=== PATIENT | male | born 1955 | race Caucasian/White ===

== ENCOUNTER 2020-07-23 14:06 | Outpatient (CLI) | payer MEDICARE, BC, SELFPAY ==
--- NOTE | ~2020-07-23 | CT_ITS ---
EXAMINATION: CT soft tissue neck w con DATE: 07/23/2020 14:33 INDICATION: Localized swelling, mass, and lump, neck. TECHNIQUE: Computed tomography (CT) of the neck was performed with 75 mL Omnipaque-350 intravenous co ntrast. Automated exposure control and iterative reconstruction technique were employed. The dose-taya gth product was 401.48 mGy-cm. COMPARISON: None FINDINGS: There is mild asymmetric enlargement of left palatine tonsil. There is lymphadenopathy invo lving the right high internal jugular chain and left high and mid internal jugular chains. Some of th e lymph nodes demonstrate cystic areas. The largest node measures 2.3 x 1.7 cm in the left high inter nal jugular chain. There is plaque in the proximal internal carotid arteries with <50% stenosis relat prashant to normal distal artery lumen diameters. There is severe cervical spondylosis. There is a chronic compression fracture of T3. There is extensive dental disease. IMPRESSION: 1. Bilateral cervical lymphadenopathy suspicious for metastatic squamous cell carcinoma. CT-guided co re needle biopsy is recommended. I called this result to Jayne Funes in the office of Dr. Dumont. Reviewed, dictated and finalized at location A. UCTION MATERIAL COORDINATOR IMPRESSION: 1. Bilateral cervical lymphadenopathy suspicious for metastatic squamous cell c arcinoma. CT-guided core needle biopsy is recommended. I called this result to Jayne Funes in the office of Dr. Dumont.
[2020-07-23 14:25] LABS: Estimated Glomerular Filt Rate > 60
== END 2020-07-23 14:07 ==
PROVIDERS: PCP Family Medicine; Visit Provider Physician Assistant
DX: R22.1 Localized swelling, mass and lump, neck (principal)
CPT/HCPCS: 70491; Q9967

== ENCOUNTER 2020-08-04 11:10 | Outpatient (CLI) | payer MEDICARE, BC, SELFPAY ==
--- NOTE | ~2020-08-04 | US_ITS ---
EXAMINATION: US biopsy lymph node DATE: 08/04/2020 13:30 INDICATION: Left cervical lymphadenopathy TECHNIQUE: The procedure including the risks and benefits was discussed with the patient. Risks discu ssed included bleeding and infection. The patient understood the risks and agreed to proceed. The sk in overlying the left neck was prepped and draped in usual sterile fashion. Anesthetic was administe red with 1% lidocaine subcutaneously. An 18 gauge core biopsy needle was advanced under continuous u ltrasound observation to the lesion of interest. 4 core biopsy specimens were obtained. The needle was removed and the entry site was cleaned and dressed. Post procedure ultrasound demonstrated no he morrhage. FINDINGS: Ultrasound images demonstrate multiple enlarged hypoechoic left jugular chain lymph nodes, the largest and most cephalad measuring 3.2 x 1.1 x 2.2 cm. Subsequent images demonstrate biopsy need le advanced into this largest jugular chain lymph node. IMPRESSION: 1. Successful Ultrasound-guided biopsy of a 3.2 x 1.1 x 2.2 cm left jugular chain lymph node which is concerning for metastatic disease. Reviewed, dictated and finalized at location A. IMPRESSION: 1. Successful Ultrasound-guided biopsy of a 3.2 x 1.1 x 2.2 cm left jugular soheila in lymph node which is concerning for metastatic disease.
== END 2020-08-04 11:11 | disposition home or self-care (01) ==
PROVIDERS: PCP Family Medicine; Visit Provider Physician Assistant
DX: R93.89 Abnormal findings on diagnostic imaging of other specified body structures (principal); C77.0 Secondary and unspecified malignant neoplasm of lymph nodes of head, face and neck
CPT/HCPCS: 38505; 76942; 88305; 88342

== ENCOUNTER 2021-07-01 02:35 | Day surgery (SDC) | payer MEDICARE, BC, SELFPAY ==
[2021-06-25 08:53] VITALS: BMI 21.4
[2021-07-01 11:45] VITALS: BP 123/73; PULSE 97; RESP 16; TEMP 37.3; O2SAT 100; BMI 21.2
[2021-07-01] MEDS: LACTATED RINGERS 1,000 ML 150 ML IV CONT (12:06)
--- NOTE | 2021-07-01 12:16 | PM.HPGS ---
History of Present Illness History of Present Illness Consent: Risks, benefits, and alternatives have been discussed and questions answered. Patient agrees to proceed with procedure. Chief complaint: family hx of colon ca Narrative: Neeraj Tpaia is a 66 year old male Referred for colon cancer screening. He has a family history of colon cancer in his father. Review of Systems Review of Systems: All systems reviewed & are unremarkable except as noted in HPI and below PMFSH Past Medical History Medical History Family history of colorectal cancer Family History Family History Father Cancer Heart disease Other Asthma Social History Social History Smoking status: Former smoker Tobacco type: cigarettes Smoking end date: 05/16/16 Alcohol intake: current Drinks per week: 1 Substance use: never Living arrangements: with family Gender identity (if verbalized by the patient): Male Spiritual care concerns: No Meds Home Medications and Allergies Home Medications Medication Instructions Recorded Confirmed Type buspirone 5 mg tablet 5 mg PO BID #60 tablet 06/05/21 06/25/21 Rx gabapentin 300 mg capsule 300 mg PO TID #270 cap 06/16/21 06/25/21 Rx hydrocodone-acetaminophen 1 tablet PO BID PRN 06/25/21 06/25/21 History levothyroxine 88 mcg PO DAILY 06/25/21 06/25/21 History nadolol 20 mg PO DAILY 06/25/21 06/25/21 History tadalafil 20 mg PO DAILY PRN 06/25/21 06/25/21 History omeprazole 40 mg capsule,delayed 40 mg PO DAILY #90 cap 07/01/21 Rx release Allergies Allergy/AdvReac Type Severity Reaction Status Date / Time No Known Allergies Allergy Verified 07/01/21 11:52 Vital Signs Vital Signs - 24 hr 07/01/21 11:45 Temperature 37.3 C Pulse Rate 97 Respiratory Rate 16 Blood Pressure 123/73 Pulse Oximetry 100 Exam Resp: Auscultation: clear to auscultation bilaterally Cardio: Rate: regular rate Rhythm: regular rhythm GI: GI Palp: Yes Soft to palpation and No Tenderness to palpation present (GI) Assessment and Plan Assessment and plan (1) Colon cancer screening: Code(s): Z12.11 - Encounter for screening for malignant neoplasm of colon Status: Acute Assessment and Plan: Colonoscopy with possible biopsy or polypectomy or cautery or injection of substances.
--- NOTE | 2021-07-01 12:19 | P.PNAN_ITS ---
Anes - Initial Pre Proc Eval Procedure: Operation Date: 07/01/21 13:00 Proposed Procedures p Screening Colonoscopy - Dave Coleman MD Date/Time: 07/01/21 12:19 Surgeon: Dave Coleman MD Pre Op Diagnosis: family hx of colon ca Patient Data Age: 66 Gender: M Height: 1.78 m Weight: 67.1 kg Last Vital Signs Temp 37.3 C 07/01/21 11:45 Pulse 97 07/01/21 11:45 Resp 16 07/01/21 11:45 BP 123/73 07/01/21 11:45 Pulse Ox 100 07/01/21 11:45 Allergies Allergy/AdvReac Type Severity Reaction Status Date / Time No Known Allergies Allergy Verified 07/01/21 11:52 Home Medications Medication Instructions Recorded Confirmed Type buspirone 5 mg tablet 5 mg PO BID #60 tablet 06/05/21 06/25/21 Rx gabapentin 300 mg capsule 300 mg PO TID #270 cap 06/16/21 06/25/21 Rx hydrocodone-acetaminophen 1 tablet PO BID PRN 06/25/21 06/25/21 History levothyroxine 88 mcg PO DAILY 06/25/21 06/25/21 History nadolol 20 mg PO DAILY 06/25/21 06/25/21 History tadalafil 20 mg PO DAILY PRN 06/25/21 06/25/21 History omeprazole 40 mg capsule,delayed 40 mg PO DAILY #90 cap 07/01/21 Rx release Patient hx anesthesia problems: none Family hx anesthesia problems: none Results Review: All pre-operative results and documents have been reviewed as part of the pre-operative evaluation. [facility] Past Medical History Medical History Family history of colorectal cancer Family History Family History Father Cancer Heart disease Other Asthma Social History Social History Smoking status: Former smoker Tobacco type: cigarettes Smoking end date: 05/16/16 Alcohol intake: current Drinks per week: 1 Substance use: never Living arrangements: with family Gender identity (if verbalized by the patient): Male Spiritual care concerns: No Anes - Eval Final PreProcedure Day of Procedure 07/01/21 12:19 Patient weight: normal Heart: regular rate and rhythm Lungs: clear to auscultation Airway: Mallampati scale class II and other (edentulous) Neurological: alert and oriented Last oral intake: >/= 8 hours ASA classification: IV Emergent: no Anesthetic plan: proceed Anesthesia type and monitoring: general GIVS and standard monitoring Results Review: All pre-operative results and documents have been reviewed as part of the pre-operative evaluation. Informed Consent: The patient's anesthetic plan and its attendant risks and benefits were discussed with the patient/family/POA. Questions were solicited and answers provided to the satisfaction of the patient/family/POA.
[2021-07-01 13:37] VITALS: BP 117/67; PULSE 82; RESP 24; O2SAT 99
[2021-07-01 13:47] VITALS: BP 105/65; PULSE 90; RESP 22; O2SAT 99
[2021-07-01 13:57] VITALS: BP 110/68; PULSE 78; RESP 21; O2SAT 99
== END 2021-07-01 14:10 | disposition home or self-care (01) ==
PROVIDERS: PCP Family Medicine; Visit Provider Internal Medicine Gastroenterology
PROC: 0DJD8ZZ Inspection of Lower Intestinal Tract, Via Natural or Artificial Opening Endoscopic (ICD-10-PCS; CPT 45378; principal; 2021-07-01 13:00)
DX: Z12.11 Encounter for screening for malignant neoplasm of colon (principal); D12.4 Benign neoplasm of descending colon; D12.2 Benign neoplasm of ascending colon; Z80.0 Family history of malignant neoplasm of digestive organs; Z87.891 Personal history of nicotine dependence
CPT/HCPCS: 45385; 88305; J2704; J7120

== ENCOUNTER 2021-07-31 09:29 | Outpatient (CLI) | payer MEDICARE, BC, SELFPAY ==
--- NOTE | ~2021-07-31 | CT_ITS ---
EXAMINATION: CT lung screening DATE: 07/31/2021 09:46 INDICATION: Personal history of nicotine dependence TECHNIQUE: Computed tomography (CT) of the chest was performed without intravenous contrast. The dose -length product was 81.70 mGy-cm. Automated exposure control and iterative reconstruction technique w ere employed. COMPARISON: Chest x-ray dated 04/18/2017 FINDINGS: No significant pleural or pericardial effusion. Heart size normal. No thoracic lymphadenopa thy. There is gynecomastia. There is splenomegaly. There are gallstones. There is apical pleural thic kening/scarring. There are a few punctate 1-2 mm nodules in the upper lobes. No endobronchial lesions . No focal airspace consolidation. No pneumothorax. There are multiple compression fractures and burs t fractures at T3, T6, T7, T8, T9, T11, T12 and L2. IMPRESSION: 1. Lung-RADS category 2: Benign appearance or behavior. Continue annual screening with noncontrast lo w-dose chest CT in 12 months. 2: Cholelithiasis. 3: Splenomegaly. 4: Multiple compression fractures of the thoracic and lumbar spine, age indeterminate. 5: Gynecomastia. Reviewed, dictated and finalized at location B. IMPRESSION: 1. Lung-RADS category 2: Benign appearance or behavior. Continue annual screeni ng with noncontrast low-dose chest CT in 12 months. 2: Cholelithiasis. 3: Splenomegaly. 4: Multiple compression fractures of the thoracic and lumbar spine, age indeter minate. 5: Gynecomastia.
--- NOTE | ~2021-07-31 | US_ITS ---
EXAMINATION: US aorta DATE: 07/31/2021 10:07 INDICATION: Abdominal aortic aneurysm screening with risk factors of prior smoking TECHNIQUE: Grayscale, color Doppler, and pulsed Doppler images of the aorta and common iliac arteries were obtained. COMPARISON: None. FINDINGS: The proximal aorta measures 2.4 cm AP. The mid aorta measures 1.7 cm AP. The distal aorta measures 1. 7 cm AP. The right common iliac artery measures 11 mm. The left common iliac artery measures 10 mm. IMPRESSION: 1. Normal caliber abdominal aorta. Reviewed, dictated and finalized at location A.
== END 2021-07-31 09:30 | disposition home or self-care (01) ==
LOC: ANHIMG 09:34
PROVIDERS: PCP Family Medicine; Visit Provider Physician Assistant
DX: Z12.2 Encounter for screening for malignant neoplasm of respiratory organs (principal); Z87.891 Personal history of nicotine dependence; K80.20 Calculus of gallbladder without cholecystitis without obstruction; R16.1 Splenomegaly, not elsewhere classified; M48.54XA Collapsed vertebra, not elsewhere classified, thoracic region, initial encounter for fracture; M48.56XA Collapsed vertebra, not elsewhere classified, lumbar region, initial encounter for fracture; N62 Hypertrophy of breast
CPT/HCPCS: 71271; 76775

== ENCOUNTER 2021-10-23 16:42 | Outpatient (CLI) | payer MEDICARE, BC, SELFPAY ==
[2021-10-23 17:10] LABS: INR 1.3; Prothrombin Time 15.4 Seconds (11.1-14.7)
[2021-10-23 17:12] LABS: Alanine Aminotransferase 17 U/L (6-50); Albumin Level 4.2 g/dL (3.5-5.1); Alkaline Phosphatase 121 U/L (38-126); Aspartate Amino Transferase 38 U/L (17-59); Bilirubin,Total 3.1 mg/dL (0.2-1.3)
[2021-10-23 17:17] LABS: Ammonia < 9 umol/L (9-30)
== END 2021-10-23 16:43 | disposition home or self-care (01) ==
LOC: ANHLAB 16:46
PROVIDERS: PCP Family Medicine; Visit Provider Internal Medicine Gastroenterology
DX: K74.60 Unspecified cirrhosis of liver (principal)
CPT/HCPCS: 36415; 80076; 82140; 85610

== ENCOUNTER 2021-11-05 07:17 | Outpatient (CLI) | payer MEDICARE, BC, SELFPAY ==
--- NOTE | ~2021-11-05 | US_ITS ---
EXAMINATION: US abdomen complete DATE: 11/05/2021 09:01 INDICATION: Cirrhosis TECHNIQUE: Multiple grayscale and Doppler ultrasound images of the abdomen were obtained. COMPARISON: Ultrasound dated 01/21/[address] dated 07/31/21 FINDINGS: The visualized portion of the pancreatic body is normal in appearance. Pancreatic head and tail are n ot visualized. The visualized mid to distal aorta appears normal measuring 2.2 cm proximally tapering to 1.7 cm distally. Liver demonstrates normal echogenicity with mildly coarsened echotexture and sub tle finding surface nodularity consistent with given history of cirrhosis. Vascular flow identified w ithin a 6.5 x 5.6 x 5.3 cm heterogeneously hypoechoic mass in the anterior right hepatic lobe. No int rahepatic biliary duct dilation suspected. Portal venous flow was seen in the hepatopetal, normal dir ection and has normal Doppler waveform. The visualized proximal inferior vena cava is normal. Multipl e echogenic and shadowing gallstones within the otherwise normal-appearing gallbladder. Sonographic M urphy sign was reported as negative by the bunch maker.Common bile duct measures 4 mm diameter which is normal. There is normal renal contour and echogenicity bilaterally. The right kidney measures 10.2 x 3.9 x 3.9 cm and the left than 0.1 x 3.8 x 4.6 cm. And 2 mm echogenic stone at the lower pole of t he right kidney with posterior truncal artifact. There is no hydronephrosis. Splenomegaly measuring 1 5.7 cm in maximal length consistent with portal venous hypertension. IMPRESSION: 1. Cirrhosis with indeterminate 6.5 cm heterogeneous hypoechoic masslike lesion in the right hepatic lobe raising concern for hepatocellular carcinoma. Recommend further evaluation with pre and postcont rast MRI. 2. Cholelithiasis. 3. Splenomegaly consistent with portal venous hypertension. Reviewed, dictated and finalized at location B. IMPRESSION: 1. Cirrhosis with indeterminate 6.5 cm heterogeneous hypoechoic masslike lesion in the right hepatic lobe raising concern for hepatocellular carcinoma. Recomm end further evaluation with pre and postcontrast MRI. 2. Cholelithiasis. 3. Splenomegaly consistent with portal venous hypertension.
== END 2021-11-05 07:18 | disposition home or self-care (01) ==
PROVIDERS: PCP Family Medicine; Visit Provider Internal Medicine Gastroenterology
DX: K74.60 Unspecified cirrhosis of liver (principal); K80.20 Calculus of gallbladder without cholecystitis without obstruction; R16.1 Splenomegaly, not elsewhere classified
CPT/HCPCS: 76700

== ENCOUNTER 2021-11-09 11:04 | Outpatient (CLI) | payer MEDICARE, BC, SELFPAY ==
[2021-11-15 14:15] LABS: Alpha Fetoprotein Tumor Marker 79.8 ng/mL (<6.1)
== END 2021-11-09 11:05 | disposition home or self-care (01) ==
LOC: ANHLAB 11:08
PROVIDERS: PCP Family Medicine; Visit Provider Internal Medicine Gastroenterology
DX: K74.60 Unspecified cirrhosis of liver (principal)
CPT/HCPCS: 36415; 82105

== ENCOUNTER 2021-11-23 10:38 | Outpatient (CLI) | payer MEDICARE, BC, SELFPAY ==
--- NOTE | ~2021-11-23 | MR_ITS ---
EXAMINATION: MR abdomen wo/w con DATE: 11/23/2021 11:44 INDICATION: Hepatic mass on prior ultrasound TECHNIQUE: Magnetic resonance imaging (MRI) of the abdomen was performed without and with 13 mL Multi ivon intravenous contrast. Sequences included coronal T2-weighted SS-FSE, coronal and axial FS 2D-F IESTA, axial STIR FSE, axial T2-weighted SS-FSE, axial T2-weighted FS SS-FSE, axial diffusion-weighte d SE, axial dual-echo T1-weighted FSPGR, and axial and coronal T1-weighted LAVA. Postcontrast axial T 1-weighted LAVA images were obtained in a time course. Postcontrast coronal T1-weighted LAVA images w ere obtained. COMPARISON: Ultrasound abdomen dated 11/05/2021 FINDINGS: Heart size is normal. No pericardial or pleural effusion. Multiple gallstones in the otherwise normal -appearing gallbladder with no dilation, wall thickening or pericholecystic edema to suggest acute ch olecystitis. Pancreas, bilateral adrenal glands and kidneys are normal. Nodular cirrhotic liver with dilation of the portal veins and splenomegaly measuring 17.0 cm in maximal length consistent with sec ondary portal venous hypertension. There are multiple hepatic masses primarily in the right hepatic l obe which demonstrate central arterial phase enhancement with subsequent central washout with persist ent peripheral enhancing rims . Constellation of MRI findings would be consistent with LI-RADS 5 lesi ons considered 100% definitive for hepatocellular carcinoma. The majority including the 2 largest bo suring 6.2 x 4.4 cm and 5.6 x 4.2 cm are found in the caudal right hepatic lobe which include 3 addit ional 1.4 cm, 1.5 cm and 1.0 cm masses at a single 1.9 cm mass in segment IVb of the left hepatic lob e. Visualized portion of the bowels are unremarkable. No pathologically enlarged abdominal lymphadeno leni. There are multiple compression fractures in the lumbar and lower thoracic spine. Normal bone m arrow signal with no abnormal focal lesions or other pathologic marrow replacing process. IMPRESSION: 1. Cirrhosis with six Li-Rads 5 hepatic masses which would be considered 100% definitive for hepatoce llular carcinoma. Ultrasound-guided core needle biopsy could be obtained for definitive pathologic co nfirmation. 2. Enlarged portal veins and splenomegaly consistent with secondary portal venous hypertension. Reviewed, dictated and finalized at location B. IMPRESSION: 1. Cirrhosis with six Li-Rads 5 hepatic masses which would be considered 100% d efinitive for hepatocellular carcinoma. Ultrasound-guided core needle biopsy co uld be obtained for definitive pathologic confirmation. 2. Enlarged portal veins and splenomegaly consistent with secondary portal veno us hypertension.
[2021-11-23 11:10] LABS: Estimated Glomerular Filt Rate > 60
== END 2021-11-23 10:39 | disposition home or self-care (01) ==
PROVIDERS: PCP Family Medicine; Visit Provider Internal Medicine Gastroenterology
DX: R16.0 Hepatomegaly, not elsewhere classified (principal); K80.20 Calculus of gallbladder without cholecystitis without obstruction; K74.60 Unspecified cirrhosis of liver; R16.1 Splenomegaly, not elsewhere classified; I87.8 Other specified disorders of veins
CPT/HCPCS: 74183; A9577

== ENCOUNTER 2022-12-30 20:57 | Emergency (ER) | payer MEDICARE, BC, SELFPAY ==
[2022-12-30 21:01] VITALS: BP 143/83; PULSE 95; RESP 16; TEMP 36.2; O2SAT 99
[2022-12-30] MEDS: TETANUS,DIPHTHERIA,AC PERTUSSIS ADULT (0.5 ML) BOOSTRIX IM (22:29)
--- NOTE | 2022-12-30 22:59 | ED.GENADULT ---
HPI - General Adult General Chief complaint: Animal Bite Stated complaint: dog bite Time Seen by Provider: 12/30/22 22:50 History of Present Illness HPI narrative: Patient is a 67-year-old gentleman who presents the emergency department with chief complaint of dog bite to right hand. The patient reports that he was tearing up his cars tires and a dog ran up and his right ear patient reports the dog latched onto his ear and would not let go and kept grabbing and pulling his ear the patient reports he punched the dog multiple times to try to get it to release it at family's. The patient reports that there is damage to the ear and reports that he is unsure of his last tetanus shot. Related Data Allergies Allergy/AdvReac Type Severity Reaction Status Date / Time No Known Allergies Allergy Verified 11/10/22 14:42 Review of Systems Review of Systems: A 10 system review of systems was completed on the patient and is negative except for what is stated in the HPI. Nursing and ancillary documentation was reviewed. PMFSH Past Medical History Medical History Family history of colorectal cancer Liver cancer Family History Family History Father Cancer Heart disease Other Asthma Social History Social History Smoking status: Former smoker Tobacco type: cigarettes Smoking end date: 05/16/16 Alcohol intake: current Drinks per week: 1 Substance use: never Living arrangements: with family Occupation/Education: retired Gender identity (if verbalized by the patient): Male Sexual Orientation (if Verbalized by the Patient): Straight or Heterosexual Spiritual care concerns: No Exam Narrative: GENERAL: Well-appearing, well-nourished, and in no acute distress. HEAD: Normocephalic, atraumatic. EYES: PERRLA and EOMI. ENT: Nares clear, no rhinorrhea or epistaxis. Mucous membranes moist. There is an irregular laceration present to the right ear in the helix and antihelix area there is exposed cartilage with significant damage to the cartilage NECK: Supple. CHEST: Clear to auscultation. No respiratory distress. HEART: Regular rate and rhythm. No murmur heard. Normal peripheral pulses. ABDOMEN: Soft, nontender, nondistended, normal active bowel sounds. EXTREMITIES: Normal range of motion. No edema. SKIN: Warm, dry, no rash. NEURO: No focal deficits. Alert and oriented x3. PSYCH: Normal mood and affect. Course Vital Signs Vital signs: Vital Signs Temperature 36.2 C L 12/30/22 21:01 Pulse Rate 95 12/30/22 21:01 Respiratory Rate 16 12/30/22 21:01 Blood Pressure 143/83 H 12/30/22 21:01 Pulse Oximetry 99 12/30/22 21:01 Oxygen Delivery Room Air 12/30/22 21:01 Temperature 36.2 C L 12/30/22 21:01 Pulse Rate 95 12/30/22 21:01 Respiratory Rate 16 12/30/22 21:01 Blood Pressure 143/83 H 12/30/22 21:01 Pulse Oximetry 99 12/30/22 21:01 Oxygen Delivery Room Air 12/30/22 21:01 Medical Decision Making MDM Narrative Medical decision making narrative: Differential diagnosis includes cartilaginous injury, canine bite to ear, laceration Due to the cartilaginous injury to the right ear the case was discussed with Dr. Prieto who is on-call for plastic surgery Dr. Prieto was able to come in and evaluate the patient and perform the repair due to the complex nature of the laceration Vital Signs Vital Signs: Vital Signs Temperature 36.2 C L 12/30/22 21:01 Pulse Rate 95 12/30/22 21:01 Respiratory Rate 16 12/30/22 21:01 Blood Pressure 143/83 H 12/30/22 21:01 Pulse Oximetry 99 12/30/22 21:01 Oxygen Delivery Room Air 12/30/22 21:01 Temperature 36.2 C L 12/30/22 21:01 Pulse Rate 95 12/30/22 21:01 Respiratory Rate 16 12/30/22 21:01 Blood Pressure 143/
[2022-12-30] MEDS: MORPHINE SULFATE (*CRX) 4 MG/ML INJ IV PUSH (23:15)
[2022-12-30] MEDS: AMPICILLIN SULB 3 GM/NS 100 ML 3 GM/100 ML VIAL IVPB (23:16)
--- NOTE | 2022-12-31 17:33 | W.PM.PROC2 ---
Procedure Note - Detailed Date of Procedure 12/31/22 Pre-op Diagnosis dog bite right ear. 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 I was notified of this by call from the ER and elected to come to the ER and make repairs. the gentleman was comfortable and cooperative and requests that I would do this job. He is accompanied by a female family member. Description of Procedure The patient lay on the gurney in room 8 the emergency room. The site had already been washed by ER staff. The patient did and relaxed. The area was anesthetized with 1% lidocaine with epinephrine by me. The wounds were carefully examined. There was great maceration of the ear cartilage and skin and multiple lacerations of the skin. Most of these were on the anterior aspect but some were on the posterior aspect as well. There was not through and through tear of the full-thickness of the ear at any place and the ear was stable. The area was carefully cleansed after achieving anesthesia. There were multiple small pieces of cartilage that could have been removed but I would left thumb. The intention was that they would at some point provide additional stability. the repairs were done with 5 0 nylon and 5 0 chromic sutures. No cartilage or soft tissue was sacrificed. Full coverage of the cartilage was achieved. There was no significant bleeding or hematoma at the time of the final closure. The dressing included a Bjorn ear protective device. The patient was sent home on oral antibiotics and analgesics. He had instructions to follow-up in my office in approximately 4 days for wound check Estimated Blood Loss 10 Drains No Packing No Pathology None sent Complications No immediate complications Condition Stable Disposition No change
== END 2022-12-31 04:49 | disposition home or self-care (01) ==
PROVIDERS: Emergency Provider Emergency Medicine; PCP Family Medicine
DX: S01.351A Open bite of right ear, initial encounter (principal); Z23 Encounter for immunization; Z87.891 Personal history of nicotine dependence; W54.0XXA Bitten by dog, initial encounter
CPT/HCPCS: 13152; 90471; 90715; 96365; 96375; 99284; A9270; J0295; J2270

== ENCOUNTER 2023-08-31 12:48 | Inpatient (IN) | payer MEDICARE, BC, SELFPAY ==
[2023-08-31] VITALS (7 sets, daily range): BP systolic 103–142; BP diastolic 62–80; PULSE 67–73; RESP 13–18; TEMP 36.6–36.7; O2SAT 100; BMI 22.4
--- NOTE | ~2023-08-31 | CT_ITS ---
EXAMINATION: CTA BRAIN/CAROTID DATE: 08/31/2023 14:13 INDICATION: Unsteady gait and slow speech TECHNIQUE: Computed tomographic angiography (CTA) of the head and neck was performed with 100 mL Omni paque-350 intravenous contrast. Multiplanar reconstructions and maximum intensity projection 3D-recon structions of the carotid arteries and of the intracranial arteries were created by the technologist on a separate workstation. Precontrast CT of the head was also obtained. Automated exposure control and iterative reconstruction technique were employed.The dose-length product was 1684.79 mGy-cm. COMPARISON: None. FINDINGS: Carotid arteries: Normal caliber aortic arch with minimal plaque and no dissection. There is atherosclerotic calcificat ions at the bilateral carotid bulbs with 0% stenosis of the right and left carotid bulbs relative to normal distal artery lumen diameter (NASCET criteria). Cervical portion of the bilateral vertebral ar teries are codominant Minimal atherosclerotic plaque without hemodynamically significant stenosis at the proximal left vertebral artery. Moderate biapical pleural-parenchymal scarring. Moderate cervical spondylosis with anterior spinal fusion at C5-C6. Cervical soft tissues are unremarkable. Head: No acute intracranial hemorrhage, acute infarction or abnormal extra axial fluid collection. Symmetri c prominence of the sulci and subarachnoid spaces overlying the convexities consistent with mild age- appropriate diffuse cerebral volume loss. Ventricles are normal and symmetric. No mass/mass effect. N o abnormally enhancing brain lesions on postcontrast imaging. Changes of bilateral intraocular lens r eplacement. The orbits, paranasal sinuses and mastoid air cells are normal. Intracranial arteries There is no hemodynamically significant stenosis in the vertebral, basilar and internal carotid arter ies. Vertebral arteries are codominant. There are no aneurysms identified. Both A1 and P1 segments a re patent. There is a patent anterior communicating artery. Cerebral arterial arborization appears sy mmetric. IMPRESSION: 1. 0% stenosis of the right and left carotid bulbs relative to normal distal artery lumen diameter (N ASCET criteria). 2. Normal aging brain. No acute intracranial process. 3. Unremarkable cerebral CT angiogram with no hemodynamically significant stenosis, aneurysm or disse ction. Reviewed, dictated and finalized at location A. IMPRESSION: 1. 0% stenosis of the right and left carotid bulbs relative to normal distal ar elijah lumen diameter (NASCET criteria). 2. Normal aging brain. No acute intracranial process. 3. Unremarkable cerebral CT angiogram with no hemodynamically significant steno sis, aneurysm or dissection.
--- NOTE | ~2023-08-31 | MR_ITS ---
MRI of the brain Clinical History: Headache Technique: Axial and sagittal T1-weighted images were acquired. These were followed by axial T2-weigh frida, diffusion weighted, gradient, and FLAIR images. Following intravenous administration of 14 cc M ultiHance gadolinium, T1-weighted fat-sat imaging was performed in the axial and coronal planes. Findings: There is no acute infarct, intracranial hemorrhage, or mass lesion. There are mild chronic white matter changes in the periventricular white matter bilaterally. Ventricles and subarachnoid spaces are unremarkable. Orbits are unremarkable. Paranasal sinuses and m astoid air cells are clear. Major flow voids are intact. Sagittal midline structures are intact. No abnormal postcontrast enhancement identified. IMPRESSION: No acute infarct, intracranial hemorrhage, or mass lesion. Mild chronic microvascular ischemic changes. Reviewed, dictated and finalized at location .
--- NOTE | ~2023-08-31 | CT_ITS ---
EXAMINATION: CT diagnostic chest wo con DATE: 09/01/2023 12:42 INDICATION: RLM masslike consolidation, hx CA TECHNIQUE: Computed tomography (CT) of the chest was performed without intravenous contrast. Addition al 3D reconstructions utilizing coronal maximum intensity projection (MIP) were performed. Automated exposure control and iterative reconstruction technique were employed. The dose-length product was 19 6.71 mGy-cm. COMPARISON: 07/31/2021 FINDINGS: Mild biapical pleural-parenchymal scarring. There is bandlike discoid atelectasis at the paramediasti nal superior segment of the left lower lobe. Consolidation without associated volume loss of the medi al segment of the right middle lobe. There are some patchy airspace opacities in the lateral segment of the right middle lobe. There is an approximately 5.9 x 3.8 cm mass/masslike consolidation at the i nfrahilar right lower lobe with slightly lower density band of consolidation extending more posterior ly in the left lower lobe. There are some patchy groundglass opacities along the periphery of the rig ht infrahilar mass. No pulmonary edema or pleural effusion. Heart size is normal. Small amount of ath erosclerotic coronary artery calcific lesion. No pericardial effusion. Thoracic aorta is normal in ca liber. No pathologically enlarged thoracic lymphadenopathy. Small sliding-type hiatal hernia. Multipl e peripherally calcified gallstones in the otherwise normal-appearing gallbladder. Cirrhosis with nod ular liver surface. There is scarring with volume loss and stable pattern of calcific density through out segment 4A and 4B of the liver suggesting change of chemoembolization and response to treatment o f reported prior hepatic masses consistent with hepatocellular carcinoma. Splenomegaly consistent wit h secondary portal venous hypertension with spleen measuring at least 16 cm in maximal length and ext ending beyond the inferior margin of the field of imaging. Coarse calcifications at the uncinate proc ess of the pancreas consistent with sequela of chronic pancreatitis. Multiple chronic compression and burst fractures in the midthoracic to upper lumbar spine. C5-C6 anterior spinal fusion. IMPRESSION: 1. Consolidation of the medial segment of the right middle lobe and masslike consolidation at the inf rahilar right lower lobe with some surrounding more patchy airspace opacities in both the right middl e and lower lobes which would favor pneumonia over malignancy/metastatic disease. Correlate clinicall y and consider short interval follow-up chest CT in 6-12 weeks following treatment. 2. Small sliding-type hiatal hernia. 3. Cirrhosis with changes of likely treated malignancy post chemoembolization in segments 4A and 4B o f liver. 4. Splenomegaly consistent with secondary portal venous hypertension. 5. Multiple chronic thoracic and upper lumbar compression and burst fractures. 6. Coarse calcifications at the uncinate process of the pancreas consistent with sequela of chronic p ancreatitis. Reviewed, dictated and finalized at location A. IMPRESSION: 1. Consolidation of the medial segment of the right middle lobe and masslike co nsolidation at the infrahilar right lower lobe with some surrounding more patch y airspace opacities in both the right middle and lower lobes which would favor pneumonia over malignancy/metastatic disease. Correlate clinically and conside r short interval follow-up chest CT in 6-12 weeks following treatment. 2. Small sliding-type hiatal hernia. 3. Cirrhosis with changes of likely treated malignancy post chemoembolization i n segments 4A and 4B of liver. 4. Splenomegaly consistent with secondary portal venous hypertension. 5. Multiple chronic thoracic and upper lumbar compression and burst fractures. 6. Coarse calcifications at the uncinate process of the pancreas consistent wit h sequela of chronic pancreatitis.
--- NOTE | ~2023-08-31 | XR_ITS ---
XR chest 2V 08/31/2023 14:23 Indication: Transient alteration of awareness Procedure: AP and lateral views of the chest Comparison: CT chest report dated 07/31/2021 Findings: Masslike consolidation right middle lobe. Heart size normal. There are multiple compression fractures of the thoracic spine, likely chronic. No significant effusion. No pneumothorax. Impression: 1: Masslike consolidation right middle lobe which may represent atelectasis or pneumonia, although ne oplasm not excluded. Reviewed, dictated and finalized at location B. Impression: 1: Masslike consolidation right middle lobe which may represent atelectasis or pneumonia, although neoplasm not excluded.
--- NOTE | 2023-08-31 12:59 | ECG_ITS ---
SEE SCANNED COPY FOR CONFIRMED REPORT MTDD
[2023-08-31 13:26] LABS: Basophils Percent Auto 0.6 % (0.2-1.2); Eosinophils Absolute Auto 0.3 K/mm3 (0-0.3); Eosinophils Percent Auto 4.9 % (0-4.4); Hematocrit 38.1 % (42.0-52.0); Hemoglobin 12.6 g/dL (14.0-18.0); Immature Granulocyte Absolute 0.02 K/mm3 (0.00-0.031); Immature Granulocyte Percent A 0.3 % (0-0.5); Immature Platelet Fraction Pct 7.5 % (0.9-11.2); Lymphocytes Absolute Auto 0.16 K/mm3 (0.9-3.2); Lymphocytes Percent Auto 2.5 % (18.3-44.2); Mean Corpuscular HGB Conc 33.1 g/dl (32-36); Mean Corpuscular Hemoglobin 33.5 pg (26-34); Mean Corpuscular Volume 101.3 fl (80-100); Mean Platelet Volume 12.1 fl (7.4-10.4); Monocytes Absolute Auto 0.5 K/mm3 (0.1-0.6); Monocytes Percent Auto 8.5 % (2.6-8.5); Neutrophils Absolute Auto 5.3 K/mm3 (1.3-6.7); Neutrophils Percent Auto 83.2 % (45.5-73.1); Platelet Count Result 90 k/mm3 (150-375); Red Blood Count 3.76 M/mm3 (4.6-6.20); Red Cell Distribution Width 19.6 % (11.5-14.5); White Blood Count 6.4 K/mm3 (4.5-10.0)
--- NOTE | 2023-08-31 13:26 | ED.HA ---
HPI - Headache General Chief Complaint: Headache <Tyson Zhou APRN - Last Filed: 08/31/23 15:25> Stated Complaint: headache <Tyson Zhou APRN - Last Filed: 08/31/23 15:25> Time Seen by Provider: 08/31/23 13:20 <Tyson Zhou APRN - Last Filed: 08/31/23 15:25> Focused HPI: Neeraj is a 68-year-old male patient presenting to the ER today with complaints increase in slurred speech, general weakness, imbalance issues x2 weeks. He went to u yesterday and signed himself out AMA due to the wait. Reports he has history of throat cancer and liver cancer. GENERAL: Well-appearing,thin, chronically ill-appearing HEAD: Normocephalic, atraumatic. CHEST: Clear to auscultation. No respiratory distress. HEART: Regular rate and rhythm. NEURO: Alert and oriented x3. Patient screened in triage and initial orders placed. Additional care and disposition to be based upon diagnostic testing and treatment. <Tyson Zhou APRN - Last Filed: 08/31/23 15:25> Source: patient <Tyson UZIEL Zhou - Last Filed: 08/31/23 15:25> Mode of arrival: ambulatory <Tyson Zhou APRN - Last Filed: 08/31/23 15:25> Limitations: no limitations <Tyson Zhou APRN - Last Filed: 08/31/23 15:25> History of Present Illness HPI Narrative: 68-year-old male presenting to the emergency department for evaluation for increased slurred speech, increased generalized weakness and increased balance issues. Patient states he has have been ongoing for the last 2 weeks. Patient is currently on going cancer treatment at [facility]. Patient communicated his symptoms to his primary care physician he was told to be evaluated for a stroke. Yesterday patient went to [facility] emergency department and waited there for 3 hours, left AMA and presented to emergency department today. Patient prefers not to be transferred back to [facility]. Patient does have a prior history of esophageal and liver cancer. Patient has had 2 treatments of Y-90, with the most recent being sometime in July. Family feels that his symptoms began to worsen after that treatment. <Gabriel Hyman MD - Last Filed: 08/31/23 19:00> Related Data Home Medications: Home Medications Medication Instructions Recorded Confirmed citalopram 20 mg tablet 20 mg PO DAILY 08/31/23 08/31/23 lenvatinib 8 mg/day (4 mg x 2) 8 mg PO DAILY 08/31/23 08/31/23 capsule (Lenvima) prochlorperazine maleate 10 mg See Rx Instructions .Route .COMPLEX 08/31/23 08/31/23 tablet spironolactone 25 mg tablet 25 mg PO DAILY 08/31/23 08/31/23 <Tyson Zhou APRN - Last Filed: 08/31/23 15:25> Allergies/Adverse Reactions: Allergies Allergy/AdvReac Type Severity Reaction Status Date / Time No Known Allergies Allergy Verified 03/11/23 15:20 <Tyson Zhou APRN - Last Filed: 08/31/23 15:25> Review of Systems Review of Systems: All systems reviewed & are unremarkable except as noted in HPI and below <Gabriel Hyman MD - Last Filed: 08/31/23 19:00> [facility] Past Medical History Medical History: Medical History Family history of colorectal cancer Liver cancer <Tyson Zhou APRN - Last Filed: 08/31/23 15:25> Family History Family History: Family History Father Cancer Heart disease Other Asthma <Tyson Zhou APRN - Last Filed: 08/31/23 15:25> Social History Social History: Social History Smoking status: Former smoker Alcohol intake: current Drinks per week: 1 Substance use: never Do You Feel Safe in your Home?: Yes Lack of Transportation: No Lack of Food: Never True Current Housing: I Have Housing Concerned About Future Housing: No Difficulty Paying Gas/Electric Bills: No Difficulty Paying for Meds: No Currently Unemployed: No Education: High School Diploma/GED Difficulty w/ Childcare or Family Care: No Living arrangements: with family Occupation/Education: retired Gender identity (if verbalized by the patient): Male Sexual Orientation (if Verbalized by the Patient): Straight or Heterosexual Spiritual care concerns: No <Tyson Zhou APRN - Last Filed: 08/31/23 15:25> Comments At the time of my signature, I reviewed and agree with the nursing past medical, surgical, social, and family history. There is no relevant family history pertinent to the patient complaint. <Tyson Zhou CUSTOMER SERVICE ADVISOR - Last Filed: 08/31/23 15:25> Course Course Emergency Course: Portions of this record may have been created with voice recognition software. <Tyson Zhou APRN - Last Filed: 08/31/23 15:25> Vital Signs Vital signs: Vital Signs Temperature 98 F 08/31/23 13:01 Pulse Rate 70 08/31/23 13:01 Respiratory Rate 17 08/31/23 13:01 Blood Pressure 142/71 H 08/31/23 13:01 Pulse Oximetry 100 08/31/23 13:01 Oxygen Delivery Room Air 08/31/23 13:01 Temperature 98 F 08/31/23 13:01 Pulse Rate 68 08/31/23 15:46 Respiratory Rate 14 08/31/23 15:46 Blood Pressure 119/69 08/31/23 15:46 Pulse Oximetry 100 08/31/23 15:46 Oxygen Delivery Room Air 08/31/23 18:05 Vital signs reviewed <Tyson Zhou, CUSTOMER SERVICE ADVISOR - Last Filed: 08/31/23 15:25> Vital Signs Temperature 98 F 08/31/23 13:01 Pulse Rate 70 08/31/23 13:01 Respiratory Rate 17 08/31/23 13:01 Blood Pressure 142/71 H 08/31/23 13:01 Pulse Oximetry 100 08/31/23 13:01 Oxygen Delivery Room Air 08/31/23 13:01 Temperature 98 F 08/31/23 13:01 Pulse Rate 68 08/31/23 15:46 Respiratory Rate 14 08/31/23 15:46 Blood Pressure 119/69 08/31/23 15:46 Pulse Oximetry 100 08/31/23 15:46 Oxygen Delivery Room Air 08/31/23 18:05 <Gabriel Hyman MD - Last Filed: 08/31/23 19:00> MDM - Headache MDM Narrative Medical decision making narrative: 68-year-old male presents to the emergency department for evaluation of 2 weeks of gait stability and slurred speech. Patient is afebrile with no leukocytosis and a stable hemoglobin of 12.6 patient has no acute abnormalities his CMP, patient does have elevated alk-phos and BNP but these are not acutely elevated. UA shows no evidence of infection. Chest x-ray showed possible mass, CTA showed no evidence of acute infarct or large vessel occlusion. Case was discussed with the hospitalist and they agreed to admit the patient here for CVA workup including an MRI. Patient and family were updated plan for admission and all questions concerns were addressed. <Gabriel Hmyan MD - Last Filed: 08/31/23 19:00> Differential Diagnosis Differential diagnosis: Likely migraine, subarachnoid hemorrhage, headache, sinusitis and postconcussion syndrome <Gabriel Hyman MD - Last Filed: 08/31/23 19:00> Lab Data Attestation: I reviewed the patient's lab results. <Gabriel Hyman MD - Last Filed: 08/31/23 19:00> Result diagrams: 08/31/23 13:06 08/31/23 13:06 <Tyson Zhou APRN - Last Filed: 08/31/23 15:25> Labs: Lab Results 08/31/23 08/31/23 08/31/23 Range/Units 13:06 13:48 13:55 WBC 6.4 (4.5-10.0) K/mm3 RBC 3.76 L (4.6-6.20) M/mm3 Hgb 12.6 L (14.0-18.0) g/dL Hct 38.1 L (42.0-52.0) % MCV 101.3 H (80-100) fl MCH 33.5 (26-34) pg MCHC 33.1 (32-36) g/dl RDW 19.6 H (11.5-14.5) % Plt Count 90 L (150-375) k/mm3 MPV 12.1 H (7.4-10.4) fl Immature Gran % (Auto) 0.3 (0-0.5) % Neut % (Auto) 83.2 H (45.5-73.1) % Lymph % (Auto) 2.5 L (18.3-44.2) % [place] % (Auto) 8.5 (2.6-8.5) % Eos % (Auto) 4.9 H (0-4.4) % Baso % (Auto) 0.6 (0.2-1.2) % Lymph # (Auto) 0.16 L (0.9-3.2) K/mm3 [place] # (Auto) 0.5 (0.1-0.6) K/mm3 Eos # (Auto) 0.3 (0-0.3) K/mm3 Baso # (Auto) 0.0 (0.0-0.1) K/mm3 Abs Immat Gran (auto) 0.02 (0.00-0.031) K/mm3 Absolute Neuts (auto) 5.3 (1.3-6.7) K/mm3 Absolute Nucleated RBC 0.000 (0.0-0.012) K/mm3 Nucleated RBC % 0.0 (0.0-0.2) % % Immature Plt Fraction 7.5 (0.9-11.2) % PT (11.1-14.7) Seconds INR APTT (22.3-36.8) Seconds Sodium 135 L (137-145) mmol/L Potassium 3.8 (3.4-5.0) mmol/L Chloride 103 (98-107) mmol/L Carbon Dioxide 26 (22-30) mmol/L Anion Gap 6 (4-12) mmol/L BUN 14 (9-20) mg/dL Creatinine 0.80 (0.7-1.3) mg/dL Estim Creat Clear Calc 73 ml/min Estimated GFR > 60 (59 - ) Glucose 85 (65-110) mg/dL Calcium 8.9 (8.4-10.2) mg/dL Total Bilirubin 4.4 H (0.2-1.3) mg/dL AST 130 H (17-59) U/L ALT 44 (6-50) U/L Alkaline Phosphatase 271 H (38-126) U/L Troponin I < 0.012 (0.000-0.034) ng/mL NT-Pro-B Natriuret Pep 545 H (19.9-100) pg/mL Total Protein 8.0 (6.3-8.2) g/dL Albumin 3.5 (3.5-5.1) g/dL Urine Color Dark yellow (Yellow) Urine Appearance Clear (Clear) Urine pH 6.0 (5.0-9.0) Ur Specific [place] 1.024 (1.001-1.035) Urine Protein Negative (Negative) mg/dL Urine Glucose (UA) Negative (Negative) mg/dL Urine Ketones Trace H (Negative) mg/dL Ur Blood (Man) Negative (Negative) Urine Nitrate Negative (Negative) Urine Bilirubin 2+ H (Negative) Urine Urobilinogen >=8.0 H (<2.0) mg/dL Leukocyte Esterase Rfl Trace H (Negative) JORGE/UL Urine RBC 0-2 (0-2) /hpf Urine WBC 0-5 (0-3) /hpf Ur Squamous Epith Cells None seen (Few) /hpf Urine Bacteria None seen /hpf Urine Casts 0-2 08/31/23 Range/Units 14:25 WBC (4.5-10.0) K/mm3 RBC (4.6-6.20) M/mm3 Hgb (14.0-18.0) g/dL Hct (42.0-52.0) % MCV (80-100) fl MCH (26-34) pg MCHC (32-36) g/dl RDW (11.5-14.5) % Plt Count (150-375) k/mm3 MPV (7.4-10.4) fl Immature Gran % (Auto) (0-0.5) % Neut % (Auto) (45.5-73.1) % Lymph % (Auto) (18.3-44.2) % [place] % (Auto) (2.6-8.5) % Eos % (Auto) (0-4.4) % Baso % (Auto) (0.2-1.2) % Lymph # (Auto) (0.9-3.2) K/mm3 [place] # (Auto) (0.1-0.6) K/mm3 Eos # (Auto) (0-0.3) K/mm3 Baso # (Auto) (0.0-0.1) K/mm3 Abs Immat Gran (auto) (0.00-0.031) K/mm3 Absolute Neuts (auto) (1.3-6.7) K/mm3 Absolute Nucleated RBC (0.0-0.012) K/mm3 Nucleated RBC % (0.0-0.2) % % Immature Plt Fraction (0.9-11.2) % PT 19.4 H (11.1-14.7) Seconds INR 1.5 APTT 42.2 H (22.3-36.8) Seconds Sodium (137-145) mmol/L Potassium (3.4-5.0) mmol/L Chloride (98-107) mmol/L Carbon Dioxide (22-30) mmol/L Anion Gap (4-12) mmol/L BUN (9-20) mg/dL Creatinine (0.7-1.3) mg/dL Estim Creat Clear Calc ml/min Estimated GFR (59 - ) Glucose (65-110) mg/dL Calcium (8.4-10.2) mg/dL Total Bilirubin (0.2-1.3) mg/dL AST (17-59) U/L ALT (6-50) U/L Alkaline Phosphatase (38-126) U/L Troponin I (0.000-0.034) ng/mL NT-Pro-B Natriuret Pep (19.9-100) pg/mL Total Protein (6.3-8.2) g/dL Albumin (3.5-5.1) g/dL Urine Color (Yellow) Urine Appearance (Clear) Urine pH (5.0-9.0) Ur Specific [place] (1.001-1.035) Urine Protein (Negative) mg/dL Urine Glucose (UA) (Negative) mg/dL Urine Ketones (Negative) mg/dL Ur Blood (Man) (Negative) Urine Nitrate (Negative) Urine Bilirubin (Negative) Urine Urobilinogen (<2.0) mg/dL Leukocyte Esterase Rfl (Negative) JORGE/UL Urine RBC (0-2) /hpf Urine WBC (0-3) /hpf Ur Squamous Epith Cells (Few) /hpf Urine Bacteria /hpf Urine Casts <Tyson Zhou, CUSTOMER SERVICE ADVISOR - Last Filed: 08/31/23 15:25> Lab Results 08/31/23 08/31/23 08/31/23 Range/Units 13:06 13:48 13:55 WBC 6.4 (4.5-10.0) K/mm3 RBC 3.76 L (4.6-6.20) M/mm3 Hgb 12.6 L (14.0-18.0) g/dL Hct 38.1 L (42.0-52.0) % MCV 101.3 H (80-100) fl MCH 33.5 (26-34) pg MCHC 33.1 (32-36) g/dl RDW 19.6 H (11.5-14.5) % Plt Count 90 L (150-375) k/mm3 MPV 12.1 H (7.4-10.4) fl Immature Gran % (Auto) 0.3 (0-0.5) % Neut % (Auto) 83.2 H (45.5-73.1) % Lymph % (Auto) 2.5 L (18.3-44.2) % [place] % (Auto) 8.5 (2.6-8.5) % Eos % (Auto) 4.9 H (0-4.4) % Baso % (Auto) 0.6 (0.2-1.2) % Lymph # (Auto) 0.16 L (0.9-3.2) K/mm3 [place] # (Auto) 0.5 (0.1-0.6) K/mm3 Eos # (Auto) 0.3 (0-0.3) K/mm3 Baso # (Auto) 0.0 (0.0-0.1) K/mm3 Abs Immat Gran (auto) 0.02 (0.00-0.031) K/mm3 Absolute Neuts (auto) 5.3 (1.3-6.7) K/mm3 Absolute Nucleated RBC 0.000 (0.0-0.012) K/mm3 Nucleated RBC % 0.0 (0.0-0.2) % % Immature Plt Fraction 7.5 (0.9-11.2) % PT (11.1-14.7) Seconds INR APTT (22.3-36.8) Seconds Sodium 135 L (137-145) mmol/L Potassium 3.8 (3.4-5.0) mmol/L Chloride 103 (98-107) mmol/L Carbon Dioxide 26 (22-30) mmol/L Anion Gap 6 (4-12) mmol/L BUN 14 (9-20) mg/dL Creatinine 0.80 (0.7-1.3) mg/dL Estim Creat Clear Calc 73 ml/min Estimated GFR > 60 (59 - ) Glucose 85 (65-110) mg/dL Calcium 8.9 (8.4-10.2) mg/dL Total Bilirubin 4.4 H (0.2-1.3) mg/dL AST 130 H (17-59) U/L ALT 44 (6-50) U/L Alkaline Phosphatase 271 H (38-126) U/L Troponin I < 0.012 (0.000-0.034) ng/mL NT-Pro-B Natriuret Pep 545 H (19.9-100) pg/mL Total Protein 8.0 (6.3-8.2) g/dL Albumin 3.5 (3.5-5.1) g/dL Urine Color Dark yellow (Yellow) Urine Appearance Clear (Clear) Urine pH 6.0 (5.0-9.0) Ur Specific [place] 1.024 (1.001-1.035) Urine Protein Negative (Negative) mg/dL Urine Glucose (UA) Negative (Negative) mg/dL Urine Ketones Trace H (Negative) mg/dL Ur Blood (Man) Negative (Negative) Urine Nitrate Negative (Negative) Urine Bilirubin 2+ H (Negative) Urine Urobilinogen >=8.0 H (<2.0) mg/dL Leukocyte Esterase Rfl Trace H (Negative) JORGE/UL Urine RBC 0-2 (0-2) /hpf Urine WBC 0-5 (0-3) /hpf Ur Squamous Epith Cells None seen (Few) /hpf Urine Bacteria None seen /hpf Urine Casts 0-2 08/31/23 Range/Units 14:25 WBC (4.5-10.0) K/mm3 RBC (4.6-6.20) M/mm3 Hgb (14.0-18.0) g/dL Hct (42.0-52.0) % MCV (80-100) fl MCH (26-34) pg MCHC (32-36) g/dl RDW (11.5-14.5) % Plt Count (150-375) k/mm3 MPV (7.4-10.4) fl Immature Gran % (Auto) (0-0.5) % Neut % (Auto) (45.5-73.1) % Lymph % (Auto) (18.3-44.2) % [place] % (Auto) (2.6-8.5) % Eos % (Auto) (0-4.4) % Baso % (Auto) (0.2-1.2) % Lymph # (Auto) (0.9-3.2) K/mm3 [place] # (Auto) (0.1-0.6) K/mm3 Eos # (Auto) (0-0.3) K/mm3 Baso # (Auto) (0.0-0.1) K/mm3 Abs Immat Gran (auto) (0.00-0.031) K/mm3 Absolute Neuts (auto) (1.3-6.7) K/mm3 Absolute Nucleated RBC (0.0-0.012) K/mm3 Nucleated RBC % (0.0-0.2) % % Immature Plt Fraction (0.9-11.2) % PT 19.4 H (11.1-14.7) Seconds INR 1.5 APTT 42.2 H (22.3-36.8) Seconds Sodium (137-145) mmol/L Potassium (3.4-5.0) mmol/L Chloride (98-107) mmol/L Carbon Dioxide (22-30) mmol/L Anion Gap (4-12) mmol/L BUN (9-20) mg/dL Creatinine (0.7-1.3) mg/dL Estim Creat Clear Calc ml/min Estimated GFR (59 - ) Glucose (65-110) mg/dL Calcium (8.4-10.2) mg/dL Total Bilirubin (0.2-1.3) mg/dL AST (17-59) U/L ALT (6-50) U/L Alkaline Phosphatase (38-126) U/L Troponin I (0.000-0.034) ng/mL NT-Pro-B Natriuret Pep (19.9-100) pg/mL Total Protein (6.3-8.2) g/dL Albumin (3.5-5.1) g/dL Urine Color (Yellow) Urine Appearance (Clear) Urine pH (5.0-9.0) Ur Specific [place] (1.001-1.035) Urine Protein (Negative) mg/dL Urine Glucose (UA) (Negative) mg/dL Urine Ketones (Negative) mg/dL Ur Blood (Man) (Negative) Urine Nitrate (Negative) Urine Bilirubin (Negative) Urine Urobilinogen (<2.0) mg/dL Leukocyte Esterase Rfl (Negative) JORGE/UL Urine RBC (0-2) /hpf Urine WBC (0-3) /hpf Ur Squamous Epith Cells (Few) /hpf Urine Bacteria /hpf Urine Casts <Gabriel Hyman MD - Last Filed: 08/31/23 19:00> Discharge Plan Discharge Clinical Impression: Dysarthria, Gait instability <Tyson Zhou APRN - Last Filed: 08/31/23 15:25> Patient Disposition: Still a Patient <Tyson Zhou APRN - Last Filed: 08/31/23 15:25> Condition: Serious <Tyson Zhou APRN - Last Filed: 08/31/23 15:25> Quality NIHSS Nursing Documentation ED NIHSS nursing documentation: reviewed/agree <Tyson Zhou APRN - Last Filed: 08/31/23 15:25> Stroke Scale Stroke Scale 1: 1a Level of consciousness: alert-0 <Gabriel Hyman MD - Last Filed: 08/31/23 19:00> 1b Level of consciousness questions: answers both correctly-0 <Gabriel Hyman MD - Last Filed: 08/31/23 19:00> 1c Level of consciousness commands: obeys both correctly-0 <Gabriel Hyman MD - Last Filed: 08/31/23 19:00> 2 Best gaze: normal-0 <Gabriel Hyman MD - Last Filed: 08/31/23 19:00> 3 Visual: no visual loss-0 <Gabriel Hyman MD - Last Filed: 08/31/23 19:00> 4 Facial palsy: normal-0 <Gabriel Hyman MD - Last Filed: 08/31/23 19:00> 5a Motor: left arm: no drift-0 <Gabriel Hyman MD - Last Filed: 08/31/23 19:00> 5b Motor: right arm: no drift-0 <Gabriel Hyman MD - Last Filed: 08/31/23 19:00> 6a Motor: left leg: no drift-0 <Gabriel Hyman MD - Last Filed: 08/31/23 19:00> 6b Motor: right leg: no drift-0 <Gabriel Hyman MD - Last Filed: 08/31/23 19:00> 7 Limb ataxia: absent-0 <Gabriel Hyman MD - Last Filed: 08/31/23 19:00> 8 Sensory: normal-0 <Gabriel Hyman MD - Last Filed: 08/31/23 19:00> 9 Best language: some loss of fluency-1 <Gabriel Hyman MD - Last Filed: 08/31/23 19:00> 10 Dysarthria: normal-0 <Gabriel Hyman MD - Last Filed: 08/31/23 19:00> 11 Extinction and inattention: no abnormality-0 <Gabriel Hyman MD - Last Filed: 08/31/23 19:00> Level:: 1 <Gabriel Hyman MD - Last Filed: 08/31/23 19:00>
[2023-08-31 13:31] LABS: Alanine Aminotransferase 44 U/L (6-50); Albumin Level 3.5 g/dL (3.5-5.1); Alkaline Phosphatase 271 U/L (38-126); Anion Gap 6 mmol/L (4-12); Aspartate Amino Transferase 130 U/L (17-59); Bilirubin,Total 4.4 mg/dL (0.2-1.3); Blood Urea Nitrogen 14 mg/dL (9-20); Calcium 8.9 mg/dL (8.4-10.2); Carbon Dioxide 26 mmol/L (22-30); Chloride 103 mmol/L (98-107); Estimated CRCL calculation 73 ml/min; Estimated Glomerular Filt Rate > 60; Glucose 85 mg/dL (65-110); Potassium 3.8 mmol/L (3.4-5.0); Sodium 135 mmol/L (137-145)
[2023-08-31 14:08] LABS: Appearance Urine Clear (Clear); Bacteria Urine None Seen /hpf; Bilirubin Urine 2+ (Negative); Blood Urine Negative (Negative); Color Urine Dark Yellow (Yellow); Glucose Urine UA Negative (Negative); Ketones Urine Trace mg/dL (Negative); Leukocyte Esterase Ur Trace LEU/UL (Negative); Nitrate Urine Negative (Negative); Non Pathogenic Casts 0-2; Protein Urine Negative (Negative); RBC Urine 0-2 /hpf (0-2); Specific Grav Ur 1.024 (1.001-1.035); Squamous Epithelial Cell Urine None Seen /hpf (Few); WBC Urine 0-5 /hpf (0-3)
[2023-08-31 14:14] LABS: Urobilinogen Urine >=8.0 mg/dL (<2.0)
[2023-08-31 14:15] LABS: Add Urine Microscopic? YES
[2023-08-31 14:26] LABS: NT Pro B Type Natriuretic Pept 545 pg/mL (19.9-100); Troponin I < 0.012 ng/mL (0.000-0.034)
[2023-08-31 14:40] LABS: INR 1.5; Prothrombin Time 19.4 Seconds (11.1-14.7)
[2023-08-31 14:41] LABS: Partial Thromboplastin Time 42.2 Seconds (22.3-36.8)
--- NOTE | 2023-08-31 16:11 | ADMGEN ---
This patient, Neeraj Tapia, was admitted to 3 [facility] Surg Room 323-01 at 1610. Patient/family oriented to hospital policies and general routines including ID bracelet, bed and alarms, visiting hours, pain management, procedures, bathroom and other care routines, personal items, smoking policy, room service/diet, and visiting hours. Information on how to activate the Rapid Response Team has been discussed. Patient/Family are encouraged to report perceived risks to care and to ask questions if they do not understand what they are told or what they should do.
[2023-08-31] MEDS: SODIUM CHLORIDE 0.9% IV 1,000 ML 125 ML IV CONT (16:15)
--- NOTE | 2023-08-31 19:05 | P.HP_ITS ---
H&P: HPI History of Present Illness Date/Time: 08/31/23 19:05 Chief Complaint: Weakness, slow speech. 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 The patient and his provides the following history. He has gone downhill in the last couple of weeks. Within a short period of time he became really weak and noticed that his gait was off and that his speech was slow. He tells me he feels like he is drunk when he is walking but luckily he has not had any significant falls or injuries. He also endorses dysphagia but that is not necessarily new for him since he had radiation several years ago for his tonsillar cancer. After speaking with his doctor he was told to go to the emergency department at [facility] yesterday to rule out stroke however after more than 3 hours in the waiting room he decided to leave and come here today. He denies visual changes, facial droop, slurred speech, focal weakness, and paresthesias (he has chronic neuropathy and that is unchanged). He also denies recent change in medications, falls, and head trauma. In the ED: He was afebrile on arrival with stable vital signs. Labs were significant for a WBC count of 6.4, hemoglobin 12.6, platelet 90, sodium 135, potassium 3.8, BUN 14, creatinine 0.80, INR 1.5, total bilirubin 4.4, AST 130, alkaline phosphatase 271, total protein 8.0, albumin 3.5. CT of the head and neck showed no acute process, stenosis, aneurysm, or dissection. Chest x-ray showed a masslike consolidation the right middle lobe. He is being admitted in this setting for brain MRI and further workup. Review of Systems Review of Systems: 12 systems were reviewed and are negativ e except for as per HPI. FORMERLY [facility] Past Medical History Medical History (Updated 08/31/23 @ 22:43 by Myesha Purvis PA-C) Anxiety Chronic back pain Chronic obstructive pulmonary disease Cirrhosis of liver Congestive heart failure Poorly documented. Hepatitis C Treated greater than 25 years ago. Hepatocellular carcinoma Status post radioembolization in May 2023. Hypothyroidism Lupus Squamous cell carcinoma of left tonsil Status post radiation. Surgical History Surgical History History of spinal surgery Family History Family History Father Cancer Heart disease Other Asthma Social History Social History (Updated 08/31/23 @ 22:44 by Myesha Purvis PA-C) Social History: Surrogate medical decision maker: Toshia Zaldivar, significant other. Code status: Full code. Smoking status: Former smoker Alcohol intake: current Drinks per week: 1 Substance use: never Do You Feel Safe in your Home?: Yes Lack of Transportation: No Lack of Food: Never True Current Housing: I Have Housing Concerned About Future Housing: No Difficulty Paying Gas/Electric Bills: No Difficulty Paying for Meds: No Currently Unemployed: No Education: High School Diploma/GED Difficulty w/ Childcare or Family Care: No Living arrangements: with family Occupation/Education: retired Spiritual care concerns: No Meds Home Medications and Allergies Home Medications Medication Instructions Recorded Confirmed Type levothyroxine 88 mcg tablet See Rx Instructions .Route 02/07/23 08/31/23 Rx .COMPLEX #90 tabs nadolol 20 mg tablet 20 mg PO DAILY #90 tabs 02/14/23 08/31/23 Rx omeprazole 40 mg capsule,delayed See Rx Instructions .Route 03/10/23 08/31/23 Rx release .COMPLEX #90 caps primidone 50 mg tablet See Rx Instructions .Route 04/13/23 08/31/23 Rx .COMPLEX #90 tabs tadalafil 20 mg tablet 20 mg PO DAILY PRN Sexual Activity 05/18/23 08/31/23 Rx #9 tabs lorazepam 0.5 mg tablet (Ativan) 0.5 mg PO BID PRN anxiety #60 tabs 07/08/23 08/31/23 Rx hydrocodone 5 mg-acetaminophen 325 1 tablet PO Q6H PRN pain #60 tabs 08/04/23 08/31/23 Rx mg tablet gabapentin 300 mg capsule 300 mg PO TID #270 caps 08/23/23 08/31/23 Rx citalopram 20 mg tablet 20 mg PO DAILY 08/31/23 08/31/23 History lenvatinib 8 mg/day (4 mg x 2) 8 mg PO DAILY 08/31/23 08/31/23 History capsule (Lenvima) prochlorperazine maleate 10 mg See Rx Instructions .Route .COMPLEX 08/31/23 08/31/23 History tablet spironolactone 25 mg tablet 25 mg PO DAILY 08/31/23 08/31/23 History Allergies Allergy/AdvReac Type Severity Reaction Status Date / Time No Known Allergies Allergy Verified 03/11/23 15:20 Vital Signs Vital Signs - 24 hr 08/31/23 13:01 08/31/23 13:32 08/31/23 13:47 Temperature 98 F Pulse Rate 70 67 71 Respiratory Rate 17 13 17 Blood Pressure 142/71 H 134/74 125/80 Pulse Oximetry 100 100 Oxygen Delivery Room Air 08/31/23 15:17 08/31/23 15:46 08/31/23 18:05 Temperature Pulse Rate 71 68 Respiratory Rate 18 14 Blood Pressure 103/62 119/69 Pulse Oximetry 100 100 Oxygen Delivery Room Air Exam Narrative: General: Thin, chronically ill-appearing gentleman in the semi-Garcia position in bed. Weight: 70.9 kg. BMI: 22.4. HEENT: PERRL, EOMI. Sclera anicteric. Oral mucosa moist. Tacky mucous membranes. Neck: Supple. No obvious carotid bruits or thyromegaly. Respiratory: Lungs are clear to auscultation bilaterally. Cardiovascular: Regular rate and rhythm with S1-S2. Gastrointestinal: Abdomen is soft, nontender, and nondistended with positive bowel sounds. Skin: Warm and dry. Extremities: No cyanosis, clubbing, or significant edema. Radial and pedal pulses intact. Neurological: Alert and oriented. Cranial nerves 2-12 are grossly intact. Speech is clear but a bit slow. No facial asymmetry. No pronator drift. Normal [id number] and rapid alternating movements. Hand guest experience specialist and foot pushes are equal bilaterally. Strength is equal in upper and lower extremities bilaterally. Psychiatric: Pleasant and cooperative with appropriate mood and affect. H&P: Results Labs Labs: Short CBC 08/31/23 Range/Units 13:06 WBC 6.4 (4.5-10.0) K/mm3 Hgb 12.6 L (14.0-18.0) g/dL Hct 38.1 L (42.0-52.0) % Plt Count 90 L (150-375) k/mm3 BMP 08/31/23 13:06 Sodium 135 L Potassium 3.8 Chloride 103 Carbon Dioxide 26 BUN 14 Creatinine 0.80 Glucose 85 Calcium 8.9 Cardiac Enzymes 08/31/23 Range/Units 13:48 Troponin I < 0.012 (0.000-0.034) ng/mL Liver Function 08/31/23 Range/Units 13:06 Total Bilirubin 4.4 H (0.2-1.3) mg/dL AST 130 H (17-59) U/L ALT 44 (6-50) U/L Alkaline Phosphatase 271 H (38-126) U/L Albumin 3.5 (3.5-5.1) g/dL Urine 08/31/23 Range/Units 13:55 Urine Color Dark yellow (Yellow) Urine Appearance Clear (Clear) Urine pH 6.0 (5.0-9.0) Ur Specific Conway 1.024 (1.001-1.035) Urine Protein Negative (Negative) mg/dL Urine Glucose (UA) Negative (Negative) mg/dL Imaging Head/Neck CTA 08/31/23 14:30 IMPRESSION: 1. 0% stenosis of the right and left carotid bulbs relative to normal distal artery lumen diameter (NASCET criteria). 2. Normal aging brain. No acute intracranial process. 3. Unremarkable cerebral CT angiogram with no hemodynamically significant stenosis, aneurysm or dissection. Chest X-Ray 08/31/23 14:36 Impression: 1: Masslike consolidation right middle lobe which may represent atelectasis or pneumonia, although neoplasm not excluded. Assessment and Plan Assessment and plan (1) Generalized weakness: Code(s): R53.1 - Weakness Status: Acute (2) Gait instability: Code(s): R26.81 - Unsteadiness on feet Status: Acute (3) Abnormal chest x-ray: Code(s): R93.89 - Abnormal findings on diagnostic imaging of other specified body structures Status: Acute (4) Cirrhosis of liver: Code(s): K74.60 - Unspecified cirrhosis of liver Status: Acute (5) Anemia: Code(s): D64.9 - Anemia, unspecified Status: Acute (6) Hepatocellular carcinoma: Code(s): C22.0 - Liver cell carcinoma Status: Acute (7) Hypothyroidism: Code(s): E03.9 - Hypothyroidism, unspecified Status: Acute (8) Anxiety: Code(s): F41.9 - Anxiety disorder, unspecified Status: Acute Plan The patient presented to the emergency department for evaluation of generalized weakness, gait instability, and slow speech for 2 weeks as detailed in HPI. Labs, imaging, EKG, and all reports were personally reviewed. Brain MRI has been ordered to rule out stroke, metastatic disease, versus other. Check ammonia level to rule out increased levels which could be causing his symptoms. Iron studies, B12, and folate levels ordered to evaluate anemia. He has known cirrhosis with chronic findings on his labs including thrombocytopenia, prolonged coags, and elevated LFTs. He had recent radioablation for his liver masses done at [facility] and to his knowledge she has no active cancer. Tonsillar cancer was treated with radiation many years ago. Chest x-ray shows a masslike consolidation the right middle lobe which could be neoplasm or pneumonia thus will obtain a chest CT for further characterization. Initiate fall precautions. PT/OT consulted. Continue levothyroxine and TSH. He has active prescriptions for citalopram and sertraline however he states that he is taking either of them. No symptoms to suggest serotonin syndrome. The rest of his home medications will be reviewed and resumed as appropriate. Findings and treatment plan were discussed with the patient and his . Questions were solicited and answered to satisfaction. The patient's medical management will be taken over by the hosp italist team in a.m. Quality VTE Prophylaxis VTE prophylaxis: mechanical ordered If No VTE Prophylaxis Answer both mechanical and pharmacologic: Reason no pharmacologic proph: medical contraindication thrombocytopenia The patient has been admitted under observation status.
[2023-08-31 20:40] LABS: Ammonia 33 umol/L (9-30)
[2023-08-31 20:49] LABS: Iron 66 ug/dL (49-181)
[2023-08-31 20:58] LABS: Percent Iron Saturation 35 % (20-50); TOTAL IRON BINDING CAPACITY 189 ug/dL (265-497)
[2023-08-31] MEDS: PRIMIDONE 50 MG TABLET BY MOUTH (21:15)
[2023-08-31 21:49] LABS: Folic Acid 13.1 ng/mL (2.76->20); Free T4 Free Thyroxine Reflex 1.55 ng/dL (0.78-2.19)
[2023-08-31] MEDS: GABAPENTIN 300 MG CAPSULE PO (22:12)
[2023-08-31 22:31] LABS: Total Triiodothyronine (T3) 1.17 NG/ML (0.97-1.69)
[2023-09-01] VITALS (11 sets, daily range): BP systolic 110–117; BP diastolic 65–71; PULSE 75–93; RESP 13–18; TEMP 36.6–37.3; O2SAT 93–99; BMI 22.5
--- NOTE | 2023-09-01 | ECHO_ITS ---
Patient Info Name: Neeraj Tapia Age: 68 years : 1955 Gender: Male Ht: 70 in Wt: 157 lbs BSA: 1.88 m2 HR: 84 bpm BP: 116 / 69 mmHg Heart Rhythm: Sinus Rhythm Technical Quality: Fair Exam Date: 09/01/2023 10:51 AM Exam Location: Echo Lab Patient Status: Inpatient Admit Date: 08/31/2023 Staff Ordering Physician: Klarissa Soria APRN Harbor Master: Cookie Zafar RDCS Attending Provider: Ananya Zhou MD Referring Physician: Yang HAWKINS; Exam Type: CA echo doppler w bubble study Study Info Complete two-dimensional, color flow and Doppler transthoracic echocardiogram is performed with agitated saline. Contrast/Agitated Saline Contrast/Ag. Saline: Agitated Saline Amount: 21.00 ml IV Access Condition: patent with no signs of infiltration Summary 1. Left ventricular chamber dimension is normal. 2. Left ventricular systolic function is normal, estimated at 65-70%. 3. There is no increased left ventricular wall thickness. 4. The left ventricular diastolic function is grade I diastolic dysfunction. 5. Left atrial chamber dimension is mildly enlarged. 6. Patent foramen ovale visualized by agitated saline imaging. 7. There is mild tricuspid valve regurgitation. Left Ventricle Left ventricular chamber dimension is normal. Left ventricular systolic function is normal, estimated at 65-70%. There is no increased left ventricular wall thickness. The left ventricular diastolic function is grade I diastolic dysfunction. Right Ventricle Right ventricular chamber dimension is normal. Right ventricular systolic function is normal. Left Atria Left atrial chamber dimension is mildly enlarged. Atrial Septum Patent foramen ovale visualized by agitated saline imaging. Aortic Valve The aortic valve is trileaflet. There is mild aortic valve sclerosis. There is no aortic valve stenosis. There is trace aortic valve regurgitation. Pulmonic Valve The pulmonic valve is normal. There is no pulmonic valve stenosis. There is trace pulmonic regurgitation. Mitral Valve The mitral valve has normal leaflets. There is no mitral valve stenosis. There is trace mitral valve regurgitation. Tricuspid Valve The tricuspid valve leaflets are normal. There is no significant tricuspid valve stenosis. There is mild tricuspid valve regurgitation. No pulmonary hypertension, estimated pulmonary arterial systolic pressure is 29 mmHg. Pericardium/Pleural The pericardium appears normal. There is no pericardial effusion. Inferior Vena Cava Normal inferior vena cava with >50% collapse upon inspiration consistent with normal right atrial pressure, 10 mmHg. Aorta The aortic root size at the sinus of Valsalva is normal. Left Ventricular Outflow Tract Name Value Normal LVOT 2D LVOT Diameter 1.9 cm LVOT Doppler LVOT Peak Gradient 3 mmHg LVOT Mean Gradient 2 mmHg LVOT VTI 17 cm LVOT VTI/AV VTI Ratio 1.0 LVOT Stroke Volume 46 ml LVOT CO 3.4 l/min LVOT CI 1.8 l/min/m2 Pulmonic Valve Name Value Normal RVOT Doppler RVOT Peak Gradient 3 mmHg PV Doppler PV Peak Gradient 5 mmHg Mitral Valve Name Value Normal MV Doppler MV Decel Moore 321 cm/s2 MV PHT 59 ms MV Area (PHT) 3.7 cm2 4.0-5.0 MV Diastolic Function MV E Peak Velocity 66 cm/s MV A Peak Velocity 60 cm/s MV E/A 1.1 MV Decel Time 204 ms Tricuspid Valve Name Value Normal TV Regurgitation Doppler TR Peak Velocity 215 cm/s TR Peak Gradient 17 mmHg Estimated PAP/RSVP RA Pressure 10 mmHg <=5 PA Systolic Pressure 29 mmHg <36 RV Systolic Pressure 29 mmHg <36 Aorta Name Value Normal Ascending Aorta Ao Root Diameter (MM) 2.9 cm Ao Root Diam Index (MM) 1.5 cm/m2 Aortic Valve Name Value Normal AV Doppler AV Peak Velocity 108 cm/s AV Peak Gradient 5 mmHg AV Mean Gradient 2 mmHg AV VTI 17 cm AV Area (Cont Eq VTI) 2.7 cm2 >=3.0 AV Area (Cont Eq Felipe) 2.2 cm2 AV Regurgitation 2D LVOT Area 2.7 cm2 Ventricles Name Value Normal LV Dimensions 2D/MM IVS Diastolic Thickness (2D) 0.8 cm 0.6-1.0 IVS Diastole Thickness (MM) 0.8 cm 0.6-1.0 LVID Diastole (2D) 3.4 cm 4.2-5.8 LVID Diastole (MM) 5.6 cm 4.2-5.8 LVIW Diastolic Thickness (2D) 0.8 cm 0.6-1.0 LVIW Diastolic Thickness (MM) 0.7 cm 0.6-1.0 LVID Systole (2D) 2.2 cm 2.5-4.0 LVID Systole (MM) 4.0 cm 2.5-4.0 LVOT Diameter 1.9 cm LV Mass (2D Cubed) 73.89 g 88.00-224.00 LV Mass Index (2D Cubed) 39 g/m2 49-115 Relative Wall Thickness (2D) 0.48 LV Mass (MM Cubed) 159.15 g 88.00-224.00 LV Mass Index (MM Cubed) 85 g/m2 49-115 Relative Wall Thickness (MM) 0.25 LV Fractional Shortening/Ejection Fraction 2D/MM LV Fractional Shortening (2D) 37 % 25-43 LV Fractional Shortening (MM) 29 % 25-43 LV EF (MM Teicholz) 55 % 52-72 LV EF (2D Teicholz) 67 % 52-72 LV Diastolic Volume (4C MOD) 54 ml LV EF (4C MOD) 63 % LV Diastolic Volume (2C MOD) 60 ml LV EF (2C MOD) 64 % LV Diastolic Volume (BP MOD) 57 ml 62-150 LV Diastolic Volume Index (BP MOD) 30 ml/m2 34-74 LV Systolic Volume (BP MOD) 21 ml 21-61 LV Systolic Volume Index (BP MOD) 11 ml/m2 11-31 LV EF (BP MOD) 63 % 52-72 LV Diastolic Length (4C) 7.9 cm LV Systolic Length (4C) 6.7 cm LV Stroke Volume (4C MOD) 34 ml Atria Name Value Normal LA Dimensions LA Dimension (MM) 4.4 cm 3.0-4.1 LA Volume (4C A-L) 25 ml LA Volume (BP A-L) 36 ml RA Dimensions RA Area (4C) 13.8 cm2 <=18.0 Report Signatures
[2023-09-01] MEDS: LEVOTHYROXINE SODIUM 88 MCG TABLET BY MOUTH (05:56)
[2023-09-01 06:22] LABS: Hematocrit 31.6 % (42.0-52.0); Hemoglobin 10.4 g/dL (14.0-18.0); Immature Platelet Fraction Pct 8.6 % (0.9-11.2); Mean Corpuscular HGB Conc 32.9 g/dl (32-36); Mean Corpuscular Hemoglobin 33.3 pg (26-34); Mean Corpuscular Volume 101.3 fl (80-100); Mean Platelet Volume 12.5 fl (7.4-10.4); Platelet Count Result 58 k/mm3 (150-375); Red Blood Count 3.12 M/mm3 (4.6-6.20); Red Cell Distribution Width 19.4 % (11.5-14.5); White Blood Count 3.9 K/mm3 (4.5-10.0)
[2023-09-01 06:37] LABS: Alanine Aminotransferase 32 U/L (6-50); Albumin Level 2.6 g/dL (3.5-5.1); Alkaline Phosphatase 217 U/L (38-126); Anion Gap 4 mmol/L (4-12); Aspartate Amino Transferase 90 U/L (17-59); Bilirubin,Total 3.1 mg/dL (0.2-1.3); Blood Urea Nitrogen 10 mg/dL (9-20); Calcium 7.8 mg/dL (8.4-10.2); Carbon Dioxide 24 mmol/L (22-30); Chloride 105 mmol/L (98-107); Estimated CRCL calculation 77 ml/min; Estimated Glomerular Filt Rate > 60; Glucose 132 mg/dL (65-110); Sodium 133 mmol/L (137-145)
[2023-09-01] MEDS: CITALOPRAM HYDROBROMIDE 20 MG TABLET PO (08:08)
[2023-09-01] MEDS: GABAPENTIN 300 MG CAPSULE PO ×3 (08:09→16:22)
[2023-09-01] MEDS: SPIRONOLACTONE 25 MG TABLET PO (08:09)
[2023-09-01] MEDS: PANTOPRAZOLE 40 MG TABLET PO (08:09)
[2023-09-01] MEDS: nadoloL 20 MG TABLET PO (08:10)
--- NOTE | 2023-09-01 08:58 | P.PNIM_ITS ---
Progress Note: A&P Assessment and Plan (1) Pneumonia: Qualifiers: Pneumonia type: due to unspecified organism Laterality: right Lung location: middle lobe of lung Qualified Code(s): J18.9 - Pneumonia, unspecified organism Code(s): J18.9 - Pneumonia, unspecified organism Status: Acute Assessment and Plan: Masslike consolidation to right middle lobe. Patient does report inspiratory chest pain generalized to mid sternum. He also reports a productive cough with varying and sputum colors of yellow, [place], clear, green. He does have shortness of breath with exertion. No oxygen requirements. Community acquired versus aspiration * CT chest is more indicative of infectious process rather than mass/metastasis. Recommend repeat imaging in 6-12 weeks. * White count 3.9, elevated neutrophils * He has reported difficulty with swallowing historically after his neck cancer but recently over the last week in a half it has been worse. Will add Flagyl for anaerobic coverage. Also on Rocephin and azithromycin for CAP. * Mucinex BID * Sputum culture ordered * Incentive spirometer (2) Generalized weakness: Code(s): R53.1 - Weakness Status: Acute Assessment and Plan: Weakness, gait instability, and slowed speech for 2 weeks. Patient states his girlfriend called his doctor last week to report the symptoms. Doctor called him back on Tuesday and asked him to report to the ER for evaluation. Initially he went to [facility] ER but got tired of waiting so he left and came to [place] ER for evaluation. * CTA head and neck with 0 % carotid stenosis and normal brain * MRI with mild chronic microvascular ischemic changes but no acute infarct * Lipid panel pending * Echocardiogram pending * TSH elevated, T4 normal * Hemoglobin A1c pending * PT/OT/ST evaluations ordered and rec's appreciated * Fall and aspiration precautions (3) Gait instability: Code(s): R26.81 - Unsteadiness on feet Status: Acute Assessment and Plan: see 1 (4) Abnormal chest x-ray: Code(s): R93.89 - Abnormal findings on diagnostic imaging of other specified body structures Status: Acute (5) Cirrhosis of liver: Code(s): K74.60 - Unspecified cirrhosis of liver Status: Acute Assessment and Plan: * continue spironolactone and nadolol * no acute abdominal pain * ammonia was slightly elevated at 33 which could be contributing to some of his slowed thinking and impaired gait * Lactulose 20 mg daily (6) Hepatocellular carcinoma: Code(s): C22.0 - Liver cell carcinoma Status: Acute Assessment and Plan: Receives care at [facility] with Dr Esparza S/p chemoembolization (7) Hypothyroidism: Code(s): E03.9 - Hypothyroidism, unspecified Status: Acute Assessment and Plan: TSH, T4 normal continue Synthroid Subjective Date/time seen: 09/01/23 08:58 Interval history: This is a 68-year-old gentleman with multiple medical problems including chronic obstructive pulmonary disease, cirrhosis of the liver with hepatocellular carcinoma status post radioembolization, 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 Interval history: 08/31: Patient is seen resting in bed in no acute distress. He has complaints of weakness, impaired gait, slowed thinking, and difficulty with speaking. NIH exam is 1 scoring for only for minor smile asymmetry. He has 5/5 strength to upper and lower extremities. He denies h/a, dizziness, nausea, vomiting, diarrhea, or constipation. He does say that he has had a cough over the last couple of weeks with varying sputum color of [place] to brown to green to yellow. He also reports inspiratory chest pain to his mid sternum. He denies fever or chills. Review of Systems Review of Systems: All systems reviewed & are unremarkable except as noted in HPI and below Exam Narrative: General: well appearing, thin appears stated age. HEENT: normocephalic, atraumatic. Mucous membranes moist. EOMI, PERRLA, bilateral sclera anicteric, no conjunctival injection. Neck supple without JVD, lymphadenopathy, or bruit. slight droop to corner of right side of mouth Respiratory: clear to auscultation bilaterally. No rales/rhonic/wheezes. Cardiovascular: Regular rate and rhythm, normal S1-S2 upon auscultation. No murmurs, rubs, or clicks. PMI is nondisplaced, capillary re-fill less than 3 second. Abdomen: Soft, round, no pulsatile masses, non-distended and non-tender. No rebound, no guarding. No CVA tenderness, no hepatosplenomegaly. Bowel sounds present to all four quadrants. No high pitch or tinkling sounds, resonant to percussion. Extremities: No cyanosis, clubbing, or edema present. Pulses are palpable 2/2. Active ROM to all four extremities. Neuro: Alert and orientated x 4. PERRLA. Cranial nerves 2-12 intact without focal deficit. Skin: Warm, dry, and intact, without rash, erythema, or lesion. Lines: Incisions: Psych: pleasant, cooperative, normal speech, normal affect, no hallucinations, no dysarthria Objective Data Vital Signs Vital Signs: Vital Signs - 24 hr 08/31/23 13:01 08/31/23 13:32 08/31/23 13:47 Temperature 98 F Pulse Rate 70 67 71 Respiratory Rate 17 13 17 Blood Pressure 142/71 H 134/74 125/80 Pulse Oximetry 100 100 Oxygen Delivery Room Air Fraction of Inspired Oxygen 08/31/23 15:17 08/31/23 15:46 08/31/23 18:05 Temperature Pulse Rate 71 68 Respiratory Rate 18 14 Blood Pressure 103/62 119/69 Pulse Oximetry 100 100 Oxygen Delivery Room Air Fraction of Inspired Oxygen 08/31/23 21:41 08/31/23 20:00 09/01/23 00:00 Temperature 98.0 F Pulse Rate 73 73 78 Respiratory Rate 18 Blood Pressure 136/67 Pulse Oximetry 100 Oxygen Delivery Fraction of Inspired Oxygen 09/01/23 04:00 09/01/23 06:00 09/01/23 08:10 Temperature 99.1 F Pulse Rate 85 84 84 Respiratory Rate 18 Blood Pressure 116/69 Pulse Oximetry 98 Oxygen Delivery Fraction of Inspired Oxygen 09/01/23 08:32 Temperature Pulse Rate Respiratory Rate Blood Pressure Pulse Oximetry 93 Oxygen Delivery Room Air Fraction of Inspired Oxygen 21 Intake/Output Intake/Output: Intake & Output 08/29/23 08/30/23 08/31/23 09/01/23 23:59 23:59 23:59 23:59 Intake Total 340 440 Output Total 900 625 Balance -560 -185 Meds/Results Medications: Active Medications Generic Name Dose Route Start Last Admin Trade Name Freq PRN Reason Stop Dose Admin Hydrocodone Bitart/Acetaminophen 1 tab 08/31/23 19:15 Hydrocodone/Acetaminophen (*Crx) 5-325 Mg Tablet PO Q6H PRN pain 7-10 Citalopram Hydrobromide 20 mg 09/01/23 09:00 09/01/23 08:08 Citalopram Hydrobromide 20 Mg Tablet PO 20 mg DAILY ADAN Administration Gabapentin 300 mg 09/01/23 09:00 09/01/23 08:09 Gabapentin 300 Mg Capsule PO 300 mg TID ADAN Administration Levothyroxine Sodium 88 mcg 09/01/23 06:30 09/01/23 05:56 Levothyroxine Sodium 88 Mcg Tablet BY MOUTH 88 mcg DAILY@0630 ADAN Administration Lorazepam 0.5 mg 08/31/23 19:15 Lorazepam (*Crx) 0.5 Mg Tablet PO BID PRN anxiety Nadolol 20 mg 09/01/23 09:00 09/01/23 08:10 Nadolol 20 Mg Tablet PO 20 mg DAILY ADAN Administration Home Med (Lenvatinib 8 mg 09/01/23 09:00 [Lenvima] 8 Mg/Day PO 10/01/23 08:59 (4 Mg X 2) Capsule) DAILY ADAN Pantoprazole Sodium 40 mg 09/01/23 09:00 09/01/23 08:09 Pantoprazole 40 Mg Tablet PO 40 mg QAM ADAN Administration Primidone 50 mg 08/31/23 21:00 08/31/23 21:15 Primidone 50 Mg Tablet BY MOUTH 50 mg QHS ADAN Administration Spironolactone 25 mg 09/01/23 09:00 09/01/23 08:09 Spironolactone 25 Mg Tablet PO 25 mg DAILY ADAN Administration Radiology Results: ITS Impressions Head/Neck CTA 08/31/23 14:30 IMPRESSION: 1. 0% stenosis of the right and left carotid bulbs relative to normal distal artery lumen diameter (NASCET criteria). 2. Normal aging brain. No acute intracranial process. 3. Unremarkable cerebral CT angiogram with no hemodynamically significant stenosis, aneurysm or dissection. Chest X-Ray 08/31/23 14:36 Impression: 1: Masslike consolidation right middle lobe which may represent atelectasis or pneumonia, although neoplasm not excluded. Brain MRI 09/01/23 07:10 IMPRESSION: No acute infarct, intracranial hemorrhage, or mass lesion. Mild chronic microvascular ischemic changes. Labs Labs: Laboratory Results - last 24 hr 08/31/23 08/31/23 08/31/23 13:06 13:48 13:55 WBC 6.4 RBC 3.76 L Hgb 12.6 L Hct 38.1 L MCV 101.3 H MCH 33.5 MCHC 33.1 RDW 19.6 H Plt Count 90 L MPV 12.1 H Immature Gran % (Auto) 0.3 Neut % (Auto) 83.2 H Lymph % (Auto) 2.5 L Mcdonald % (Auto) 8.5 Eos % (Auto) 4.9 H Baso % (Auto) 0.6 Lymph # (Auto) 0.16 L Mcdonald # (Auto) 0.5 Eos # (Auto) 0.3 Baso # (Auto) 0.0 Abs Immat Gran (auto) 0.02 Absolute Neuts (auto) 5.3 Absolute Nucleated RBC 0.000 Nucleated RBC % 0.0 % Immature Plt Fraction 7.5 PT INR APTT Sodium 135 L Potassium 3.8 Chloride 103 Carbon Dioxide 26 Anion Gap 6 BUN 14 Creatinine 0.80 Estim Creat Clear Calc 73 Estimated GFR > 60 Glucose 85 Calcium 8.9 Iron TIBC % Saturation Ferritin Total Bilirubin 4.4 H AST 130 H ALT 44 Alkaline Phosphatase 271 H Ammonia Troponin I < 0.012 NT-Pro-B Natriuret Pep 545 H Total Protein 8.0 Albumin 3.5 Vitamin B12 Folate TSH (Reflex) Free T4 Total T3 Urine Color Dark yellow Urine Appearance Clear Urine pH 6.0 Ur Specific Conway 1.024 Urine Protein Negative Urine Glucose (UA) Negative Urine Ketones Trace H Ur Blood (Man) Negative Urine Nitrate Negative Urine Bilirubin 2+ H Urine Urobilinogen >=8.0 H Leukocyte Esterase Rfl Trace H Urine RBC 0-2 Urine WBC 0-5 Ur Squamous Epith Cells None seen Urine Bacteria None seen Urine Casts 0-2 08/31/23 08/31/23 08/31/23 14:25 19:02 20:22 WBC RBC Hgb Hct MCV MCH MCHC RDW Plt Count MPV Immature Gran % (Auto) Neut % (Auto) Lymph % (Auto) Mcdonald % (Auto) Eos % (Auto) Baso % (Auto) Lymph # (Auto) Mcdonald # (Auto) Eos # (Auto) Baso # (Auto) Abs Immat Gran (auto) Absolute Neuts (auto) Absolute Nucleated RBC Nucleated RBC % % Immature Plt Fraction PT 19.4 H INR 1.5 APTT 42.2 H Sodium Potassium Chloride Carbon Dioxide Anion Gap BUN Creatinine Estim Creat Clear Calc Estimated GFR Glucose Calcium Iron 66 TIBC 189 L % Saturation 35 Ferritin 261.00 Total Bilirubin AST ALT Alkaline Phosphatase Ammonia 33 H Troponin I NT-Pro-B Natriuret Pep Total Protein Albumin Vitamin B12 911.0 Folate 13.1 TSH (Reflex) 9.590 H Free T4 1.55 Total T3 1.17 Urine Color Urine Appearance Urine pH Ur Specific Conway Urine Protein Urine Glucose (UA) Urine Ketones Ur Blood (Man) Urine Nitrate Urine Bilirubin Urine Urobilinogen Leukocyte Esterase Rfl Urine RBC Urine WBC Ur Squamous Epith Cells Urine Bacteria Urine Casts 09/01/23 05:51 WBC 3.9 L RBC 3.12 L Hgb 10.4 L Hct 31.6 L MCV 101.3 H MCH 33.3 MCHC 32.9 RDW 19.4 H Plt Count 58 L MPV 12.5 H Immature Gran % (Auto) Neut % (Auto) Lymph % (Auto) Mcdonald % (Auto) Eos % (Auto) Baso % (Auto) Lymph # (Auto) Mcdonald # (Auto) Eos # (Auto) Baso # (Auto) Abs Immat Gran (auto) Absolute Neuts (auto) Absolute Nucleated RBC Nucleated RBC % % Immature Plt Fraction 8.6 PT INR APTT Sodium 133 L Potassium 4.0 Chloride 105 Carbon Dioxide 24 Anion Gap 4 BUN 10 Creatinine 0.80 Estim Creat Clear Calc 77 Estimated GFR > 60 Glucose 132 H Calcium 7.8 L Iron TIBC % Saturation Ferritin Total Bilirubin 3.1 H AST 90 H ALT 32 Alkaline Phosphatase 217 H Ammonia Troponin I NT-Pro-B Natriuret Pep Total Protein 7.0 Albumin 2.6 L Vitamin B12 Folate TSH (Reflex) Free T4 Total T3 Urine Color Urine Appearance Urine pH Ur Specific [place] Urine Protein Urine Glucose (UA) Urine Ketones Ur Blood (Man) Urine Nitrate Urine Bilirubin Urine Urobilinogen Leukocyte Esterase Rfl Urine RBC Urine WBC Ur Squamous Epith Cells Urine Bacteria Urine Casts
[2023-09-01 09:23] LABS: Cholesterol 104 mg/dL (0-200); HDL Direct 13 mg/dL; Triglycerides 60 mg/dL (<150)
[2023-09-01 09:27] LABS: Hemoglobin A1C 4.7 % (<5.7)
[2023-09-01 09:34] LABS: LDL Cholesterol Direct 87 mg/dL
[2023-09-01] MEDS: AZITHROMYCIN 500 MG/NS 250 ML 500 MG/250 ML BAG 250 MG IVPB (18:48)
[2023-09-01] MEDS: metroNIDAZOLE 500 MG TABLET PO (20:09)
[2023-09-01] MEDS: PRIMIDONE 50 MG TABLET BY MOUTH (20:09)
[2023-09-01] MEDS: guaiFENesin 12 HR 600 MG TABCR 1200 MG PO (20:09)
[2023-09-01] MEDS: cefTRIAXone 2 GM/NS 100 ML 2 GM/100 ML BAG IVPB (22:40)
[2023-09-02] VITALS (10 sets, daily range): BP systolic 115–126; BP diastolic 63–67; PULSE 67–84; RESP 12–18; TEMP 36.4–37.1; O2SAT 96–98
[2023-09-02 06:34] LABS: Basophils Percent Auto 0.7 % (0.2-1.2); Eosinophils Absolute Auto 0.2 K/mm3 (0-0.3); Eosinophils Percent Auto 4.6 % (0-4.4); Hematocrit 35.2 % (42.0-52.0); Hemoglobin 11.4 g/dL (14.0-18.0); Immature Granulocyte Absolute 0.02 K/mm3 (0.00-0.031); Immature Granulocyte Percent A 0.4 % (0-0.5); Immature Platelet Fraction Pct 8.7 % (0.9-11.2); Lymphocytes Absolute Auto 0.12 K/mm3 (0.9-3.2); Lymphocytes Percent Auto 2.6 % (18.3-44.2); Mean Corpuscular HGB Conc 32.4 g/dl (32-36); Mean Corpuscular Hemoglobin 33.2 pg (26-34); Mean Corpuscular Volume 102.6 fl (80-100); Mean Platelet Volume 12.3 fl (7.4-10.4); Monocytes Absolute Auto 0.4 K/mm3 (0.1-0.6); Monocytes Percent Auto 8.1 % (2.6-8.5); Neutrophils Absolute Auto 3.8 K/mm3 (1.3-6.7); Neutrophils Percent Auto 83.6 % (45.5-73.1); Platelet Count Result 63 k/mm3 (150-375); Red Blood Count 3.43 M/mm3 (4.6-6.20); Red Cell Distribution Width 19.7 % (11.5-14.5); White Blood Count 4.6 K/mm3 (4.5-10.0)
[2023-09-02] MEDS: LEVOTHYROXINE SODIUM 88 MCG TABLET BY MOUTH (06:35)
[2023-09-02] MEDS: metroNIDAZOLE 500 MG TABLET PO ×3 (06:35→21:29)
[2023-09-02 06:36] LABS: Ammonia 63 umol/L (9-30)
[2023-09-02 06:49] LABS: Alanine Aminotransferase 34 U/L (6-50); Albumin Level 2.7 g/dL (3.5-5.1); Alkaline Phosphatase 228 U/L (38-126); Anion Gap 0 mmol/L (4-12); Aspartate Amino Transferase 93 U/L (17-59); Bilirubin,Total 4.4 mg/dL (0.2-1.3); Blood Urea Nitrogen 10 mg/dL (9-20); Carbon Dioxide 26 mmol/L (22-30); Chloride 104 mmol/L (98-107); Estimated CRCL calculation 101 ml/min; Estimated Glomerular Filt Rate > 60; Glucose 101 mg/dL (65-110); Magnesium 1.7 mg/dL (1.6-2.3); Potassium 4.2 mmol/L (3.4-5.0); Sodium 130 mmol/L (137-145)
--- NOTE | 2023-09-02 08:32 | P.PNIM_ITS ---
Progress Note: A&P Assessment and Plan (1) Pneumonia: Qualifiers: Laterality: right Lung location: middle lobe of lung Pneumonia type: due to unspecified organism Qualified Code(s): J18.9 - Pneumonia, unspecified organism Code(s): J18.9 - Pneumonia, unspecified organism Status: Acute Assessment and Plan: Masslike consolidation to right middle lobe. Patient does report inspiratory chest pain generalized to mid sternum. He also reports a productive cough with varying and sputum colors of yellow, [place], clear, green. He does have shortness of breath with exertion. No oxygen requirements. Community acquired versus aspiration * CT chest is more indicative of infectious process rather than mass/metastasis. Recommend repeat imaging in 6-12 weeks. * White count 3.9, elevated neutrophils * He has reported difficulty with swallowing historically after his neck cancer but recently over the last week in a half it has been worse. Will add Flagyl for anaerobic coverage. Also on Rocephin and azithromycin for CAP. * Mucinex BID * Sputum culture ordered * Incentive spirometer 09/01: * WBC 4.6 today, neutrophils 83.6 * sputum culture pending (2) Generalized weakness: Code(s): R53.1 - Weakness Status: Acute Assessment and Plan: Weakness, gait instability, and slowed speech for 2 weeks. Patient states his girlfriend called his doctor last week to report the symptoms. Doctor called him back on Tuesday and asked him to report to the ER for evaluation. Initially he went to [facility] ER but got tired of waiting so he left and came to [place] ER for evaluation. * CTA head and neck with 0 % carotid stenosis and normal brain * MRI with mild chronic microvascular ischemic changes but no acute infarct * Lipid panel pending * Echocardiogram pending * TSH elevated, T4 normal * Hemoglobin A1c pending * PT/OT/ST evaluations ordered and rec's appreciated * Fall and aspiration precautions 09/01: * ECHO shows EF 65-70% with LV grade 1 diastolic dysfunction. Negative bubble study. * MRI confirmed no acute stroke * lipid panel shows LDL 87, goal would be less than 70 given microvascular ischemic changes seen on imaging * Started on Atorvastatin 40 mg daily and ASA 81 mg daily * A1c 4.7% * Speech evaluation completed. Patient will benefit from speech therapy 2-3 days per week. At this time he is okay to continue on regular diet and mildly thick liquids. * PT recommending home health therapy at discharge (3) Gait instability: Code(s): R26.81 - Unsteadiness on feet Status: Acute Assessment and Plan: see 2 (4) Abnormal chest x-ray: Code(s): R93.89 - Abnormal findings on diagnostic imaging of other specified body structures Status: Acute Assessment and Plan: see 1 (5) Cirrhosis of liver: Code(s): K74.60 - Unspecified cirrhosis of liver Status: Acute Assessment and Plan: * continue spironolactone and nadolol * no acute abdominal pain * ammonia was slightly elevated at 33 which could be contributing to some of his slowed thinking and impaired gait * Lactulose 20 mg daily 09/01: * ammonia 63 today * Lactulose was ordered to start today not yesterday. Increased dosing to 20 mg TID. * T bili 4.4, AST 93, ALT 34, Alk phos 228 (6) Hepatocellular carcinoma: Code(s): C22.0 - Liver cell carcinoma Status: Acute Assessment and Plan: Receives care at [facility] with Dr Esparza S/p chemoembolization 1 month ago and in May of this year (7) Hypothyroidism: Code(s): E03.9 - Hypothyroidism, unspecified Status: Acute Assessment and Plan: TSH, T4 normal continue Synthroid Plan Lactulose TID today D/c home tomorrow if improvement Subjective Date/time seen: 09/02/23 08:32 Interval history: This is a 68-year-old gentleman with multiple medical problems including chronic obstructive pulmonary disease, cirrhosis of the liver with hepatocellular carcin romario status post radioembolization, 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 Interval history: 08/31: Patient is seen resting in bed in no acute distress. He has complaints of weakness, impaired gait, slowed thinking, and difficulty with speaking. NIH exam is 1 scoring for only for minor smile asymmetry. He has 5/5 strength to upper and lower extremities. He denies h/a, dizziness, nausea, vomiting, diarrhea, or constipation. He does say that he has had a cough over the last couple of weeks with varying sputum color of [place] to brown to green to yellow. He also reports inspiratory chest pain to his mid sternum. He denies fever or chills. 09/01: Patient appears more drowsy today. He states that he is tired. Ammonia has increased. Will increase lactulose dosing to TID. He otherwise feels that his speech and gait have improved back to baseline. He has no worsening cough or new shortness of breath. Will continue with oral abx today. I discussed plan of care with his significant other, Toshia. Review of Systems Review of Systems: All systems reviewed & are unremarkable except as noted in HPI and below Exam Narrative: General: well appearing, thin appears stated age. HEENT: normocephalic, atraumatic. Mucous membranes moist. EOMI, PERRLA, bilateral sclera anicteric, no conjunctival injection. Neck supple without JVD, lymphadenopathy, or bruit. slight droop to corner of right side of mouth Respiratory: clear to auscultation bilaterally. No rales/rhonic/wheezes. Cardiovascular: Regular rate and rhythm, normal S1-S2 upon auscultation. No murmurs, rubs, or clicks. PMI is nondisplaced, capillary re-fill less than 3 second. Abdomen: Soft, round, no pulsatile masses, non-distended and non-tender. No rebound, no guarding. No CVA tenderness, no hepatosplenomegaly. Bowel sounds present to all four quadrants. No high pitch or tinkling sounds, resonant to percussion. Extremities: No cyanosis, clubbing, or edema present. Pulses are palpable 2/2. Active ROM to all four extremities. Neuro: Alert and orientated x 4. PERRLA. Cranial nerves 2-12 intact without focal deficit. Skin: Warm, dry, and intact, without rash, erythema, or lesion. Lines: Incisions: Psych: pleasant, cooperative, normal speech, normal affect, no hallucinations, no dysarthria Objective Data Vital Signs Vital Signs: Vital Signs - 24 hr 09/01/23 12:23 09/01/23 12:00 09/01/23 13:54 Temperature 97.8 F Pulse Rate 93 79 Respiratory Rate 18 Blood Pressure 110/65 Pulse Oximetry 99 Oxygen Delivery Room Air 09/01/23 16:00 09/01/23 20:00 09/01/23 20:00 Temperature Pulse Rate 77 75 Respiratory Rate Blood Pressure Pulse Oximetry Oxygen Delivery Room Air 09/01/23 21:58 09/02/23 05:48 09/02/23 00:00 Temperature 98.7 F 97.6 F Pulse Rate 76 73 71 Respiratory Rate 13 12 Blood Pressure 117/71 126/63 Pulse Oximetry 98 96 Oxygen Delivery 09/02/23 04:00 Temperature Pulse Rate 81 Respiratory Rate Blood Pressure Pulse Oximetry Oxygen Delivery Intake/Output Intake/Output: Intake & Output 08/30/23 08/31/23 09/01/23 09/02/23 23:59 23:59 23:59 23:59 Intake Total 340 662 500 Output Total 900 625 Balance -560 37 500 Meds/Results Medications: Active Medications Generic Name Dose Route Start Last Admin Trade Name Freq PRN Reason Stop Dose Admin Hydrocodone Bitart/Acetaminophen 1 tab 08/31/23 19:15 Hydrocodone/Acetaminophen (*Crx) 5-325 Mg Tablet PO Q6H PRN pain 7-10 Aspirin 81 mg 09/02/23 09:00 Aspirin 81 Mg Enteric Tablet PO QAM [facility] Atorvastatin Calcium 40 mg 09/02/23 09:00 Atorvastatin 40 Mg Tablet PO DAILY ADAN Citalopram Hydrobromide 20 mg 09/01/23 09:00 09/01/23 08:08 Citalopram Hydrobromide 20 Mg Tablet PO 20 mg DAILY ADAN Administration Gabapentin 300 mg 09/01/23 09:00 09/01/23 16:22 Gabapentin 300 Mg Capsule PO 300 mg TID ADAN Administration Guaifenesin 1,200 mg 09/01/23 21:00 09/01/23 20:09 Guaifenesin 12 Hr 600 Mg Tabcr PO 1,200 mg Q12HR ADAN Administration Ceftriaxone Sodium 2 gm in 100 mls @ 200 mls/hr 09/01/23 17:00 09/01/23 22:40 Rocephin 2 Gm/Ns 100 Ml IVPB 200 mls/hr Q24H ADAN Administration Azithromycin 500 mg in 250 mls @ 250 mls/hr 09/01/23 17:00 09/01/23 18:48 Zithromax IVPB 250 mls/hr Q24H ADAN Administration Lactulose 20 gm 09/02/23 09:00 Lactulose 20 Gm/30 Ml Udc PO TID ADAN Levothyroxine Sodium 88 mcg 09/01/23 06:30 09/02/23 06:35 Levothyroxine Sodium 88 Mcg Tablet BY MOUTH 88 mcg DAILY@0630 ADAN Administration Lorazepam 0.5 mg 08/31/23 19:15 Lorazepam (*Crx) 0.5 Mg Tablet PO BID PRN anxiety Metronidazole 500 mg 09/01/23 22:00 09/02/23 06:35 Metronidazole 500 Mg Tablet PO 500 mg Q8HR ADAN Administration Nadolol 20 mg 09/01/23 09:00 09/01/23 08:10 Nadolol 20 Mg Tablet PO 20 mg DAILY ADAN Administration Home Med (Lenvatinib 8 mg 09/01/23 09:00 [Lenvima] 8 Mg/Day PO 10/01/23 08:59 (4 Mg X 2) Capsule) DAILY [facility] Pantoprazole Sodium 40 mg 09/01/23 09:00 09/01/23 08:09 Pantoprazole 40 Mg Tablet PO 40 mg QAM ADAN Administration Perflutren Lipid Microsphere 0 ml 09/01/23 09:08 Perflutren Lipid Microspheres 1.5 Ml Vial Diluted To 10 Ml Total Volume IV PUSH 09/04/23 09:08 ONCE PRN adequate visualization Protocol Primidone 50 mg 08/31/23 21:00 09/01/23 20:09 Primidone 50 Mg Tablet BY MOUTH 50 mg QHS ADAN Administration Spironolactone 25 mg 09/01/23 09:00 09/01/23 08:09 Spironolactone 25 Mg Tablet PO 25 mg DAILY ADAN Administration Radiology Results: ITS Impressions Head/Neck CTA 08/31/23 14:30 IMPRESSION: 1. 0% stenosis of the right and left carotid bulbs relative to normal distal artery lumen diameter (NASCET criteria). 2. Normal aging brain. No acute intracranial process. 3. Unremarkable cerebral CT angiogram with no hemodynamically significant sten osis, aneurysm or dissection. Chest X-Ray 08/31/23 14:36 Impression: 1: Masslike consolidation right middle lobe which may represent atelectasis or pneumonia, although neoplasm not excluded. Brain MRI 09/01/23 07:10 IMPRESSION: No acute infarct, intracranial hemorrhage, or mass lesion. Mild chronic microvascular ischemic changes. Chest CT 09/01/23 12:57 IMPRESSION: 1. Consolidation of the medial segment of the right middle lobe and masslike consolidation at the infrahilar right lower lobe with some surrounding more patchy airspace opacities in both the right middle and lower lobes which would favor pneumonia over malignancy/metastatic disease. Correlate clinically and consider short interval follow-up chest CT in 6-12 weeks following treatment. 2. Small sliding-type hiatal hernia. 3. Cirrhosis with changes of likely treated malignancy post chemoembolization in segments 4A and 4B of liver. 4. Splenomegaly consistent with secondary portal venous hypertension. 5. Multiple chronic thoracic and upper lumbar compression and burst fractures. 6. Coarse calcifications at the uncinate process of the pancreas consistent with sequela of chronic pancreatitis. Labs Labs: Laboratory Results - last 24 hr 09/01/23 09/02/23 09/02/23 05:49 06:10 06:11 WBC 4.6 RBC 3.43 L Hgb 11.4 L Hct 35.2 L MCV 102.6 H MCH 33.2 MCHC 32.4 RDW 19.7 H Plt Count 63 L MPV 12.3 H Immature Gran % (Auto) 0.4 Neut % (Auto) 83.6 H Lymph % (Auto) 2.6 L Rolette % (Auto) 8.1 Eos % (Auto) 4.6 H Baso % (Auto) 0.7 Lymph # (Auto) 0.12 L Ro[place] # (Auto) 0.4 Eos # (Auto) 0.2 Baso # (Auto) 0.0 Abs Immat Gran (auto) 0.02 Absolute Neuts (auto) 3.8 Absolute Nucleated RBC 0.000 Nucleated RBC % 0.0 % Immature Plt Fraction 8.7 Sodium 130 L Potassium 4.2 Chloride 104 Carbon Dioxide 26 Anion Gap 0 L BUN 10 Creatinine 0.60 L Estim Creat Clear Calc 101 Estimated GFR > 60 Glucose 101 Hemoglobin A1c 4.7 Calcium 8.0 L Magnesium 1.7 Total Bilirubin 4.4 H AST 93 H ALT 34 Alkaline Phosphatase 228 H Ammonia 63 H Total Protein 7.0 Albumin 2.7 L Triglycerides 60 Cholesterol 104 LDL Cholesterol Direct 87 HDL Direct 13 Quality VTE Prophylaxis VTE prophylaxis: mechanical ordered
[2023-09-02] MEDS: LACTULOSE 20 GM/30 ML UDC PO ×3 (08:50→17:56)
[2023-09-02] MEDS: nadoloL 20 MG TABLET PO (08:50)
[2023-09-02] MEDS: ASPIRIN 81 MG ENTERIC TABLET PO (08:50)
[2023-09-02] MEDS: ATORVASTATIN 40 MG TABLET PO (08:50)
[2023-09-02] MEDS: guaiFENesin 12 HR 600 MG TABCR 1200 MG PO ×2 (08:51→21:26)
[2023-09-02] MEDS: GABAPENTIN 300 MG CAPSULE PO ×3 (08:51→17:19)
[2023-09-02] MEDS: PANTOPRAZOLE 40 MG TABLET PO (08:51)
[2023-09-02] MEDS: CITALOPRAM HYDROBROMIDE 20 MG TABLET PO (08:51)
[2023-09-02] MEDS: SPIRONOLACTONE 25 MG TABLET PO (08:51)
--- NOTE | 2023-09-02 11:38 | P.CDI_ITS ---
CDI Query Clarification Request BMI 22.5 Nutritional Diagnostic Statement Moderate malnutrition related to increased protein needs as evidenced by an unintentional weight loss of -7% x 1 month and NFPE findings for moderate subcutaneous fat loss (cheeks,biceps) and moderate muscle wasting (temples,clavicle). Please refer to the comprehensive nutrition assessment for further information. Please clarify severity of protein calorie malnutrition if known: * mild * Moderate * Severe * Other/Unspecified <Jacnita Grimes RN - Last Filed: 09/02/23 11:44> Clarified Diagnosis Clarified Diagnosis: moderate malnutrition related to increased protein needs as evidenced by an unintentional weight loss of 7% x 1 month and NFPE findings for moderate subcutaneous fat loss, and moderate muscle wasting. <Klarissa Soria APRN - Last Filed: 09/02/23 11:55>
[2023-09-02] MEDS: cefTRIAXone 2 GM/NS 100 ML 2 GM/100 ML BAG IVPB (17:19)
[2023-09-02] MEDS: AZITHROMYCIN 500 MG/NS 250 ML 500 MG/250 ML BAG 250 MG IVPB (17:56)
[2023-09-02] MEDS: PRIMIDONE 50 MG TABLET BY MOUTH (21:26)
[2023-09-02] MEDS: HYDROcodone/acetaminophen (*CRX) 5-325 MG TABLET 1 TAB PO (21:35)
[2023-09-02] MEDS: LORazepam (*CRX) 0.5 MG TABLET PO (21:35)
[2023-09-03] VITALS (8 sets, daily range): BP systolic 101–110; BP diastolic 54–55; PULSE 72–85; RESP 14–16; TEMP 36.1–36.3; O2SAT 94–96
[2023-09-03 05:57] LABS: Basophils Percent Auto 0.6 % (0.2-1.2); Eosinophils Absolute Auto 0.2 K/mm3 (0-0.3); Eosinophils Percent Auto 4.4 % (0-4.4); Hematocrit 33.4 % (42.0-52.0); Immature Granulocyte Absolute 0.02 K/mm3 (0.00-0.031); Immature Granulocyte Percent A 0.4 % (0-0.5); Immature Platelet Fraction Pct 7.6 % (0.9-11.2); Lymphocytes Absolute Auto 0.14 K/mm3 (0.9-3.2); Lymphocytes Percent Auto 2.6 % (18.3-44.2); Mean Corpuscular HGB Conc 32.9 g/dl (32-36); Mean Corpuscular Hemoglobin 33.2 pg (26-34); Mean Corpuscular Volume 100.9 fl (80-100); Mean Platelet Volume 11.9 fl (7.4-10.4); Monocytes Absolute Auto 0.6 K/mm3 (0.1-0.6); Neutrophils Absolute Auto 4.4 K/mm3 (1.3-6.7); Platelet Count Result 69 k/mm3 (150-375); Red Blood Count 3.31 M/mm3 (4.6-6.20); Red Cell Distribution Width 19.9 % (11.5-14.5); White Blood Count 5.4 K/mm3 (4.5-10.0)
[2023-09-03 06:02] LABS: Alanine Aminotransferase 31 U/L (6-50); Albumin Level 2.6 g/dL (3.5-5.1); Alkaline Phosphatase 227 U/L (38-126); Anion Gap 2 mmol/L (4-12); Aspartate Amino Transferase 84 U/L (17-59); Bilirubin,Total 3.2 mg/dL (0.2-1.3); Blood Urea Nitrogen 20 mg/dL (9-20); Calcium 8.2 mg/dL (8.4-10.2); Carbon Dioxide 25 mmol/L (22-30); Chloride 104 mmol/L (98-107); Estimated CRCL calculation 74 ml/min; Estimated Glomerular Filt Rate > 60; Glucose 119 mg/dL (65-110); Magnesium 1.9 mg/dL (1.6-2.3); Potassium 4.2 mmol/L (3.4-5.0); Sodium 131 mmol/L (137-145)
[2023-09-03] MEDS: LEVOTHYROXINE SODIUM 88 MCG TABLET BY MOUTH (06:14)
[2023-09-03] MEDS: metroNIDAZOLE 500 MG TABLET PO (06:14)
[2023-09-03] MEDS: HYDROcodone/acetaminophen (*CRX) 5-325 MG TABLET 1 TAB PO (06:19)
[2023-09-03] MEDS: PANTOPRAZOLE 40 MG TABLET PO (09:07)
[2023-09-03] MEDS: ATORVASTATIN 40 MG TABLET PO (09:07)
[2023-09-03] MEDS: nadoloL 20 MG TABLET PO (09:07)
[2023-09-03] MEDS: SPIRONOLACTONE 25 MG TABLET PO (09:08)
[2023-09-03] MEDS: guaiFENesin 12 HR 600 MG TABCR 1200 MG PO (09:08)
[2023-09-03] MEDS: ASPIRIN 81 MG ENTERIC TABLET PO (09:08)
[2023-09-03] MEDS: CITALOPRAM HYDROBROMIDE 20 MG TABLET PO (09:08)
[2023-09-03] MEDS: GABAPENTIN 300 MG CAPSULE PO ×2 (09:08→13:01)
[2023-09-03] MEDS: LACTULOSE 20 GM/30 ML UDC PO (09:11)
[2023-09-03 09:12] LABS: Ammonia 26 umol/L (9-30)
--- NOTE | 2023-09-03 12:57 | P.DS_ITS ---
DS: Admitting Diagnosis Discharge Date 09/02 Admitting Diagnosis weakness, slurred speech DS: Discharge Diagnosis Discharge Diagnosis (1) Pneumonia: Qualifiers: Laterality: right Lung location: middle lobe of lung Pneumonia type: due to unspecified organism Qualified Code(s): J18.9 - Pneumonia, unspecified organism Code(s): J18.9 - Pneumonia, unspecified organism Status: Acute Assessment and Plan: Masslike consolidation to right middle lobe. Patient does report inspiratory chest pain generalized to mid sternum. He also reports a productive cough with varying and sputum colors of yellow, [place], clear, green. He does have shortness of breath with exertion. No oxygen requirements. Community acquired versus aspiration * CT chest is more indicative of infectious process rather than mass/metastasis. Recommend repeat imaging in 6-12 weeks. * White count 3.9, elevated neutrophils * He has reported difficulty with swallowing historically after his neck cancer but recently over the last week in a half it has been worse. Will add Flagyl for anaerobic coverage. Also on Rocephin and azithromycin for CAP. * Mucinex BID * Sputum culture ordered * Incentive spirometer 09/01: * WBC 4.6 today, neutrophils 83.6 * sputum culture pending (2) Generalized weakness: Code(s): R53.1 - Weakness Status: Acute Assessment and Plan: Weakness, gait instability, and slowed speech for 2 weeks. Patient states his girlfriend called his doctor last week to report the symptoms. Doctor called him back on Tuesday and asked him to report to the ER for evaluation. Initially he went to [facility] ER but got tired of waiting so he left and came to [place] [facility] for evaluation. * CTA head and neck with 0 % carotid stenosis and normal brain * MRI with mild chronic microvascular ischemic changes but no acute infarct * Lipid panel pending * Echocardiogram pending * TSH elevated, T4 normal * Hemoglobin A1c pending * PT/OT/ST evaluations ordered and rec's appreciated * Fall and aspiration precautions 09/01: * ECHO shows EF 65-70% with LV grade 1 diastolic dysfunction. Negative bubble study. * MRI confirmed no acute stroke * lipid panel shows LDL 87, goal would be less than 70 given microvascular ischemic changes seen on imaging * Started on Atorvastatin 40 mg daily and ASA 81 mg daily * A1c 4.7% * Speech evaluation completed. Patient will benefit from speech therapy 2-3 days per week. At this time he is okay to continue on regular diet and mildly thick liquids. * PT recommending home health therapy at discharge (3) Gait instability: Code(s): R26.81 - Unsteadiness on feet Status: Acute Assessment and Plan: see 2 (4) Abnormal chest x-ray: Code(s): R93.89 - Abnormal findings on diagnostic imaging of other specified body structures Status: Acute Assessment and Plan: see 1 (5) Cirrhosis of liver: Code(s): K74.60 - Unspecified cirrhosis of liver Status: Acute Assessment and Plan: * continue spironolactone and nadolol * no acute abdominal pain * ammonia was slightly elevated at 33 which could be contributing to some of his slowed thinking and impaired gait * Lactulose 20 mg daily 09/01: * ammonia 63 today * Lactulose was ordered to start today not yesterday. Increased dosing to 20 mg TID. * T bili 4.4, AST 93, ALT 34, Alk phos 228 (6) Hepatocellular carcinoma: Code(s): C22.0 - Liver cell carcinoma Status: Acute Assessment and Plan: Receives care at [facility] with Dr Diallo S/p chemoembolization 1 month ago and in May of this year (7) Hypothyroidism: Code(s): E03.9 - Hypothyroidism, unspecified Status: Acute Assessment and Plan: TSH, T4 normal continue Synthroid Plan Lactulose TID today D/c home tomorrow if improvement DS: Summary Hospital Course Reason for hospitalization: community acquired pneumonia, elevated ammonia Hospital Course: This is a 68-year-old gentleman with multiple medical problems including chronic obstructive pulmonary disease, cirrhosis of the liver with hepatocellular carcinoma status post radioembolization, 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 Interval history: 08/31: Patient is seen resting in bed in no acute distress. He has complaints of weakness, impaired gait, slowed thinking, and difficulty with speaking. NIH exam is 1 scoring for only for minor smile asymmetry. He has 5/5 strength to upper and lower extremities. He denies h/a, dizziness, nausea, vomiting, diarrhea, or constipation. He does say that he has had a cough over the last couple of weeks with varying sputum color of [place] to brown to green to yellow. He also reports inspiratory chest pain to his mid sternum. He denies fever or chills. 09/01: Patient appears more drowsy today. He states that he is tired. Ammonia has increased. Will increase lactulose dosing to TID. He otherwise feels that his speech and gait have improved back to baseline. He has no worsening cough or new shortness of breath. Will continue with oral abx today. I discussed plan of care with his significant other, Toshia. 09/02: Doing well today. Much more alert and reports resolution of symptoms of weakness and slurred speech. Sputum is growing staph aureus. Change antibiotics to doxycycline, Flagyl, and Augmentin for CAP and ASA pneumonia concerns. Ammonia level is normal today after starting lactulose. Continue with this medication at d/c. Vitals and labs reviewed and he is being discharged today. Time Spent with Patient Time attestation: Total time spent providing and/or coordinating discharge services:56 Exam Narrative: General: well appearing, thin appears stated age. HEENT: normocephalic, atraumatic. Mucous membranes moist. EOMI, PERRLA, bilateral sclera anicteric, no conjunctival injection. Neck supple without JVD, lymphadenopathy, or bruit. slight droop to corner of right side of mouth Respiratory: clear to auscultation bilaterally. No rales/rhonic/wheezes. Cardiovascular: Regular rate and rhythm, normal S1-S2 upon auscultation. No murmurs, rubs, or clicks. PMI is nondisplaced, capillary re-fill less than 3 second. Abdomen: Soft, round, no pulsatile masses, non-distended and non-tender. No rebound, no guarding. No CVA tenderness, no hepatosplenomegaly. Bowel sounds present to all four quadrants. No high pitch or tinkling sounds, resonant to percussion. Extremities: No cyanosis, clubbing, or edema present. Pulses are palpable 2/2. Active ROM to all four extremities. Neuro: Alert and orientated x 4. PERRLA. Cranial nerves 2-12 intact without focal deficit. Skin: Warm, dry, and intact, without rash, erythema, or lesion. Lines: Incisions: Psych: pleasant, cooperative, normal speech, normal affect, no hallucinations, no dysarthria DS: Data Data Completed and Pending Labs on day of discharge: Labs from last 24 hours 09/03/23 09/03/23 08:50 05:22 WBC 5.4 RBC 3.31 L Hgb 11.0 L Hct 33.4 L MCV 100.9 H MCH 33.2 MCHC 32.9 RDW 19.9 H Plt Count 69 L MPV 11.9 H Immature Gran % (Auto) 0.4 Neut % (Auto) 81.0 H Lymph % (Auto) 2.6 L Banner % (Auto) 11.0 H Eos % (Auto) 4.4 Baso % (Auto) 0.6 Lymph # (Auto) 0.14 L Banner # (Auto) 0.6 Eos # (Auto) 0.2 Baso # (Auto) 0.0 Abs Immat Gran (auto) 0.02 Absolute Neuts (auto) 4.4 Absolute Nucleated RBC 0.000 Nucleated RBC % 0.0 % Immature Plt Fraction 7.6 Sodium 131 L Potassium 4.2 Chloride 104 Carbon Dioxide 25 Anion Gap 2 L BUN 20 D Creatinine 0.80 Estim Creat Clear Calc 74 Estimated GFR > 60 Glucose 119 H Calcium 8.2 L Magnesium 1.9 Total Bilirubin 3.2 H AST 84 H ALT 31 Alkaline Phosphatase 227 H Ammonia 26 Total Protein 7.0 Albumin 2.6 L Preliminary micro results at discharge 09/01/23 15:17 Sputum Culture - Preliminary Sputum Staphylococcus aureus Discharge Plan Discharge Attending physician on discharge: Brendon Elmore Consulting providers: Tyson Zhou Discharging Clinician: Klarissa Soria Anticipated Discharge Date/Time: 09/03/23 13:01 Patient Disposition: Home Health Service Activity: september show Diet: regular Discharge Instructions: Per Care Coordination Patient has been accepted to have [facility] for RN, PT, OT, ST [phone] RN please fax completed discharge instructions to [phone] You were admitted with concerns of weakness and difficult speech. We completed a CT scan and MRI which showed mild chronic microvascular ischemic changes. No acute stroke was found. Your cholesterol panel showed an LDL of 87. You were started on ASA 81 mg and Atorvastatin 40 mg. You were also found to have an elevated ammonia of 66. For this you were started on lactulose 20 mg three times a day. This medication will make you have bowel movements and this is how we will control your ammonia levels. As ammonia rises in the body it can cause confusion, slurred speech, gait disturbance, and even coma. The goal would be for you to have 2-3 bowel movements a day. If you are meeting this goal then you can hold off on further lactulose for that day. There were also findings of possible pneumonia vs mass on your CT chest. Given your symptoms of productive cough, fever, and chills we decided to treat you for community acquired pneumonia versus aspiration pneumonia. You had reported recent difficulty with aspiration and this could be a contributing component to your pneumonia. Initially your WBC was < 3.9, with + neutrophils indicating possible infection. Your preliminary sputum culture is growing staph aureus. You will continue with Augmentin, Doxycycline, and Flagyl antibiotics. You will need a repeat CT scan of your chest in 6 weeks to evaluate this pneumonia vs mass. I have had our radiology department push over your CT scan to [facility] so Dr Diallo may evaluate the images on Tuesday at your appointment. Please keep your follow up with Dr Diallo's office on Tuesday. You should also follow up with your primary care physician in the next 1-2 weeks. You should also follow up with your PCP in the next 1-2 weeks. If you have chest pain, shortness of breath, fever, chills, increased weakness, recurrent slurred speech, one sided weakness, or confusion please return to be re-evaluted. White Blood Count 5.4 4.5-10.0 K/mm3 ML Red Blood Count 3.31 L 4.6-6.20 M/mm3 ML Hemoglobin 11.0 L 14.0-18.0 g/dL ML Hematocrit 33.4 L 42.0-52.0 % ML MCV 100.9 H 80-100 fl ML MCH 33.2 26-34 pg ML MCHC 32.9 32-36 g/dl ML RDW 19.9 H 11.5-14.5 % ML Platelet Count 69 L 150-375 k/mm3 ML Imm Plt Frac% 7.6 0.9-11.2 % ML - An elevated IPF indicates platelets are being produced. - High IPF levels are related to increased peripheral platelet destruction. - A low platelet and low IPF is consistent with a platelet production disorder. MPV 11.9 H 7.4-10.4 fl ML NRBC % Auto 0.0 0.0-0.2 % ML Imm Gran % Auto 0.4 0-0.5 % ML Neut % Auto 81.0 H 45.5-73.1 % ML Lymph % Auto 2.6 L 18.3-44.2 % ML Banner % Auto 11.0 H 2.6-8.5 % ML Eos % Auto 4.4 0-4.4 % ML Baso % Auto 0.6 0.2-1.2 % ML NRBC Abs Auto 0.000 0.0-0.012 K/mm3 ML Imm Gran # Auto 0.02 0.00-0.031 K/mm3 ML Neut # Auto 4.4 1.3-6.7 K/mm3 ML Lymph # Auto 0.14 L 0.9-3.2 K/mm3 ML Banner # Auto 0.6 0.1-0.6 K/mm3 ML Eos # Auto 0.2 0-0.3 K/mm3 ML Baso # Auto 0.0 0.0-0.1 K/mm3 ML Sodium 131 L 137-145 mmol/L ML Potassium 4.2 3.4-5.0 mmol/L ML Chloride 104 98-107 mmol/L ML Carbon Dioxide 25 22-30 mmol/L ML Anion Gap 2 L 4-12 mmol/L ML Blood Urea Nitrogen 20 * 9-20 mg/dL ML Delta: 10 on 09/02/23-0611 Creatinine 0.80 0.7-1.3 mg/dL ML Estimated GFR > 60 been validated in patients > 70 years of age. Estimated CRCL calc 74 ml/min ML For use in prescri ption drug dose determination only. Reference ranges have not been establishe for this calculation. Glucose 119 H 65-110 mg/dL ML Calcium 8.2 L 8.4-10.2 mg/dL ML Magnesium 1.9 1.6-2.3 mg/dL ML Total Bilirubin 3.2 H 0.2-1.3 mg/dL ML AST 84 H 17-59 U/L ML ALT 31 6-50 U/L ML Total Protein 7.0 6.3-8.2 g/dL ML Albumin 2.6 L 3.5-5.1 g/dL ML Alkaline Phosphatase 227 H 38-126 U/L ML CHEST CT IMPRESSION: 1. Consolidation of the medial segment of the right middle lobe and masslike consolidation at the infrahilar right lower lobe with some surrounding more patchy airspace opacities in both the right middle and lower lobes which would favor pneumonia over malignancy/metastatic disease. Correlate clinically and consider short interval follow-up chest CT in 6-12 weeks following treatment. 2. Small sliding-type hiatal hernia. 3. Cirrhosis with changes of likely treated malignancy post chemoembolization in segments 4A and 4B of liver. 4. Splenomegaly consistent with secondary portal venous hypertension. 5. Multiple chronic thoracic and upper lumbar compression and burst fractures. 6. Coarse calcifications at the uncinate process of the pancreas consistent with sequela of chronic pancreatitis. Brain MRI IMPRESSION: No acute infarct, intracranial hemorrhage, or mass lesion. Mild chronic microvascular ischemic changes. Patient Instructions: Antibiotic Form, Community Acquired Pneumonia (DC) Stand Alone Forms: General Discharge Information Follow-up/Referrals: Hussein Dumont MD [Primary Care Provider] - Discharge Medications: New metronidazole 500 mg Tablet 500 mg PO Q8HR Qty: 15 0RF amoxicillin-pot clavulanate 875-125 mg tablet 1 tablet PO Q12H Qty: 5 0RF guaifenesin [Mucus Relief ER] 600 mg Tablet Extended Release 12hr 1,200 mg PO Q12HR Qty: 60 0RF atorvastatin 40 mg Tablet 40 mg PO DAILY Qty: 30 0RF aspirin 81 mg Tablet,Delayed Release (Dr/Ec) 81 mg PO QAM Qty: 30 0RF lactulose 20 gram/30 mL Solution 20 g PO TID Qty: 1200 0RF Rx Instructions: titrate for 2-3 bowel movements a day doxycycline monohydrate 100 mg capsule 100 mg PO BID Qty: 10 0RF Continued prochlorperazine maleate 10 mg tablet See Rx Instructions .ROUTE .COMPLEX Rx Instructions: 10 mg orally every 8 hrs as needed for n/v spironolactone 25 mg tablet 25 mg PO DAILY citalopram 20 mg tablet 20 mg PO DAILY Lenvima 8 mg/day (4 mg x 2) capsule 8 mg PO DAILY levothyroxine 88 mcg tablet See Rx Instructions .ROUTE .COMPLEX Qty: 90 2RF Dose Instruction: TAKE 1 TABLET BY MOUTH EVERY DAY Rx Instructions: TAKE 1 TABLET BY MOUTH EVERY DAY nadolol 20 mg tablet 20 mg PO DAILY Qty: 90 2RF Rx Instructions: TAKE 1 TABLET BY MOUTH EVERY DAY omeprazole 40 mg capsule,delayed release(DR/EC) See Rx Instructions .ROUTE .COMPLEX Qty: 90 3RF Dose Instruction: TAKE 1 CAPSULE BY MOUTH EVERY DAY Rx Instructions: TAKE 1 CAPSULE BY MOUTH EVERY DAY primidone 50 mg tablet See Rx Instructions .ROUTE .COMPLEX Qty: 90 2RF Dose Instruction: TAKE 1 TABLET BY MOUTH EVERY DAY AT BEDTIME Rx Instructions: TAKE 1 TABLET BY MOUTH EVERY DAY AT BEDTIME tadalafil 20 mg tablet 20 mg PO DAILY PRN (Reason: Sexual Activity) Qty: 9 5RF Rx Instructions: TAKE 1 TABLET BY MOUTH NEEDED BEFORE SEXUAL INTERCOURSE lorazepam [Ativan] 0.5 mg tablet 0.5 mg PO BID PRN (Reason: anxiety) Qty: 60 0RF hydrocodone-acetaminophen 5-325 mg tablet 1 tablet PO Q6H PRN (Reason: pain) Qty: 60 0RF Hold Instructions: Order Change gabapentin 300 mg capsule 300 mg PO TID Qty: 270 0RF Date of admission: 09/01/23 14:23 Primary Care Provider: Hussein Dumont Admitting Provider: Ananya Zhou Attending physician on admission: Ananya Zhou Condition: Improved Quality VTE Prophylaxis VTE prophylaxis: mechanical ordered
== END 2023-09-03 15:01 | disposition home or self-care (01) | DRG 178 ==
LOC: ANHED 15:19 → ANH3MEDSUR 15:55
PROVIDERS: Emergency Medicine; Nurse Practitioner Family; Physician Assistant; Admitting Provider Family Medicine; Emergency Provider Emergency Medicine; PCP Family Medicine; Visit Provider Nurse Practitioner Acute Care
DX: J15.212 Pneumonia due to Methicillin resistant Staphylococcus aureus (principal); C22.0 Liver cell carcinoma; E44.0 Moderate protein-calorie malnutrition; E03.9 Hypothyroidism, unspecified; F41.9 Anxiety disorder, unspecified; I50.9 Heart failure, unspecified; J44.9 Chronic obstructive pulmonary disease, unspecified; K74.60 Unspecified cirrhosis of liver; K21.9 Gastro-esophageal reflux disease without esophagitis; R47.81 Slurred speech; R26.89 Other abnormalities of gait and mobility; Z92.3 Personal history of irradiation; Z87.891 Personal history of nicotine dependence; Z85.818 Personal history of malignant neoplasm of other sites of lip, oral cavity, and pharynx; Z68.20 Body mass index [BMI] 20.0-20.9, adult
CPT/HCPCS: 36415; 70496; 70498; 70553; 71046; 71250; 80053; 80061; 81001; 82140; 82607; 82728; 82746; 83036; 83540; 83550; 83735; 83880; 84439; 84443; 84480; 84484; 85025; 85027; 85055; 85610; 85730; 87070; 87077; 87181; 87205; 92522; 92526; 92610; 93005; 93306; 96375; 97161; 97165; 99285; A9270; A9577; G0378; J0456; J0696; J7030; Q9967